=== PATIENT | male | born 1940 | race Caucasian/White ===

== ENCOUNTER → 2017-06-20 | Outpatient (CLI) | payer MEDICARE, OTHER ==
--- NOTE | 2017-06-21 07:18 | XR ---
EXAMINATION TYPE: XR lumbosacral spine min 4V , 5 VIEWS DATE OF EXAM ORDERED: 06/20/2017 HISTORY: [id number] SI pain, lumbar strain. COMPARISON: None. FINDINGS: There is a superior endplate infraction at L1. The age of this is not determined. Vertebra l body height and alignment otherwise maintained. There is no spondylolysis or spondylolisthesis. The re is disc space loss and a vacuum phenomena present at L4-5. There is also disc space loss at L5-S1. There is minor hypertrophic spondylosis present at L1-2. There is mild, diffuse facet arthropathy, w orse on the right than the left. The pedicles are intact. IMPRESSION: 1. SUPERIOR ENDPLATE INFRACTION OF L1, AGE NOT DETERMINED. 2. MILD, DIFFUSE DEGENERATIVE CHANGE.
== END | disposition home or self-care (01) ==
LOC: RADXRYALE 16:22
PROVIDERS: ATTEND Physician Assistant Medical
DX: M47.816 Spondylosis without myelopathy or radiculopathy, lumbar region (principal); M89.8X8 Other specified disorders of bone, other site
CPT/HCPCS: 72110

== ENCOUNTER → 2018-03-21 | Outpatient (CLI) | payer MEDICARE, OTHER ==
--- NOTE | 2018-03-21 13:03 | XR ---
EXAMINATION TYPE: XR chest 2V DATE OF EXAM: 03/21/2018 COMPARISON: 06/20/2016 TECHNIQUE: PA and lateral views submitted. HISTORY: Cough FINDINGS: The lungs are clear and there is no pneumothorax, pleural effusion, or focal pneumonia. Hyperinflat ion suggests COPD. Hypertrophic and degenerative change of the spine. No overt failure. IMPRESSION: 1. No acute process.
== END | disposition home or self-care (01) ==
LOC: RADXRYALE 11:53
PROVIDERS: ATTEND Physician Assistant Medical
DX: R05 Cough (principal); R06.02 Shortness of breath
CPT/HCPCS: 71046

== ENCOUNTER → 2018-06-01 | Outpatient (CLI) | payer MEDICARE, OTHER ==
--- NOTE | 2018-06-01 16:02 | XR ---
Left knee HISTORY: Left knee pain 3 views of the left knee Bone mineralization and alignment are maintained. No evident joint effusion. No fracture or dislocati on evident. There are vascular calcifications present. IMPRESSION: No significant abnormality, consider knee MRI.
== END | disposition home or self-care (01) ==
LOC: RADXRYALE 15:26
PROVIDERS: ATTEND Family Medicine
DX: M25.562 Pain in left knee (principal)

== ENCOUNTER → 2018-06-13 | Outpatient (CLI) | payer MEDICARE, OTHER | END | disposition home or self-care (01) | LOC: LABWHC1 14:57 | PROVIDERS: ATTEND Otolaryngology | DX: J30.89 Other allergic rhinitis (principal) | CPT/HCPCS: 36415 ==

== ENCOUNTER 2018-09-11 09:29 | Day surgery (SDC) | payer MEDICARE, OTHER ==
[2018-09-10 11:35] VITALS: BMI 34.4
[~2018-09-11 09:29] MED LIST: HEPARIN SODIUM,PORCINE 5,000 UNIT/ML 1 ML VIAL SQ ONE; HYDROmorphone 1 MG/ML 1 ML SYRINGE IVP PRN; LACTATED RINGERS 1,000 ML IV SCH; ONDANSETRON 4 MG/2 ML VIAL IVP ONE; ceFAZolin IN SWFI 2 GM/20 ML SYRINGE IVP ONE
[2018-09-11] MEDS ORDERED: MIDAZOLAM 2 MG/2 ML VIAL IV ONE (10:32)
[2018-09-11 10:35] LABS: Glucose,Whole Blood 123 mg/dL (75-99)
--- NOTE | 2018-09-11 10:53 | P.GSHP ---
History of Present Illness H&P Date: 09/11/18 Chief Complaint: Right inguinal hernia This a 78-year-old male who presents today for laparoscopic robotic repair of right inguinal hernia. Past Medical History Past Medical History: Cancer, COPD, Diabetes Mellitus, Hypertension, Thyroid Disorder Additional Past Medical History / Comment(s): BENIGN TREMORS, RASH ON ANKLES AND "JOCK ITCH", STATES PROBLEMS WITH HIS BALANCE AND USES A CANE., HX OF PROSTATE CANCER WITH "SEED IMPLANTS ., FREQUENT URINATION., RIGHT INGUINAL HERNIA. History of Any Multi-Drug Resistant Organisms: None Reported Past Surgical History: Orthopedic Surgery Additional Past Surgical History / Comment(s): LEFT ROTATOR CUFF ., PROSTATE SEED IMPLANTS. Past Anesthesia/Blood Transfusion Reactions: Postoperative Nausea & Vomiting ( PONV) Past Psychological History: No Psychological Hx Reported Smoking Status: Former smoker Past Alcohol Use History: None Reported Additional Past Alcohol Use History / Comment(s): QUIT SMOKING 20 YEARS AGO OR MORE. SMOKED 1 PPD, SMOKED APPROX . 20 YEARS. Past Drug Use History: None Reported - Past Family History Mother Family Medical History: Cancer Medications and Allergies Home Medications Medication Instructions Recorded Confirmed Type Albuterol Sulfate [Accuneb] 1 dose INHALATION DAILY 09/10/18 09/10/18 History Albuterol Sulfate [Proair 2 puff PO Q4-6H PRN 09/10/18 09/10/18 History Respiclick] Alendronate Sodium [Fosamax] 70 mg PO WEEKLY 09/10/18 09/10/18 History Calcium Carbonate/Vitamin D3 1 each PO BID 09/10/18 09/10/18 History [Calcium 500-Vit D3 200 Tablet] Cholecalciferol (Vitamin D3) 2,000 unit PO DAILY 09/10/18 09/10/18 History [Vitamin D3] Clopidogrel [Plavix] 75 mg PO DAILY 09/10/18 09/10/18 History Fluticasone Nasal Drifting [Flonase 2 spr EA NOSTRIL DAILY 09/10/18 09/10/18 History Nasal Drifting] Hydrochlorothiazide 25 mg PO DAILY 09/10/18 09/10/18 History Levothyroxine Sodium 100 mcg PO DAILY 09/10/18 09/10/18 History Metoprolol Tartrate [Lopressor] 50 mg PO BID 09/10/18 09/10/18 History Mirabegron [Myrbetriq] 50 mg PO DAILY 09/10/18 09/10/18 History Nystatin 100,000Unit/gm Cream 1 applic TOPICAL BID PRN 09/10/18 09/10/18 History [Mycostatin Cream] [place]-3 Fatty Acids/Fish Oil [Fish 1 each PO DAILY 09/10/18 09/10/18 History Oil 1,000 mg Softgel] Pregabalin [Lyrica] 50 mg PO HS 09/10/18 09/10/18 History Pregabalin [Lyrica] 100 mg PO DAILY 09/10/18 09/10/18 History Primidone [Mysoline] 25 mg PO DAILY 09/10/18 09/10/18 History Telmisartan [Micardis] 80 mg PO DAILY 09/10/18 09/10/18 History Tiotropium [place] [Spiriva] 1 cap INHALATION DAILY 09/10/18 09/10/18 History Triamcinolone 0.1% Ointment 1 applic TOPICAL BID 09/10/18 09/10/18 History [Kenalog 0.1% Ointment] Wheat Dextrin [Benefiber] 1 each PO HS 09/10/18 09/10/18 History amLODIPine BESYLATE [Norvasc] 5 mg PO DAILY 09/10/18 09/10/18 History metFORMIN HCL [Glucophage] 850 mg PO DAILY 09/10/18 09/10/18 History traZODone HCL 50 mg PO HS 09/10/18 09/10/18 History Allergies Allergy/AdvReac Type Severity Reaction Status Date / Time No Known Allergies Allergy Unverified 09/11/18 10:09 Surgical - Exam Vital Signs Temp Pulse Resp BP Pulse Ox 98.6 F 79 16 162/83 98 09/11/18 10:14 09/11/18 10:14 09/11/18 10:14 09/11/18 10:14 09/11/18 10:14 - General well developed, no distress - Eyes PERRL - ENT normal pinna - Neck no masses - Respiratory normal expansion - Cardiovascular Rhythm: regular - Abdomen Abdomen: soft, non tender Hernia: inguinal (Reducible right inguinal hernia) Results - Labs Abnormal Lab Results - Last 24 Hours (Table) 09/11/18 Range/Units 10:19 POC Glucose (mg/dL) 123 H (75-99) mg/dL Assessment and Plan Assessment: Right inguinal hernia. We'll perform laparoscopic robotic assistance repair.
[2018-09-11] MEDS ORDERED: LIDOCAINE 1% 20 ML VIAL (10MG/ML) FOR IV START INTRADERMA ONE (10:58)
--- NOTE | 2018-09-11 11:08 | P.ONQ ---
Anesthesiology Proc Note - PNB - Peripheral Nerve Block Performed Right Transversus Abdominis Single Time Out Performed: Yes Procedure Start Time: 10:32 Procedure Stop Time: 10:40 Indication: Acute Post-Operative Pain Sedation Type: Sedate with meaningful contact maintained Preparation: Sterile Prep Position: Supine Needle Size: 50mm (2") Needle Gauge: 21 Technique: Ultrasound Injectate: 0.5% Ropivacaine (see comment for volume) (ropi .5% 15cc) Blood Aspirated: No Pain Paresthesia on Injection Noted: No Resistance on Injection: Normal Events: Uneventful and Well Tolerated
[2018-09-11] MEDS ORDERED: ROCURONIUM BROMIDE 10 MG/ML 10 ML VIAL IV ONE (11:28)
[2018-09-11] MEDS ORDERED: LIDOCAINE 1% INJ 10MG/ML (20 ML MDV) ONE (11:28)
[2018-09-11] MEDS ORDERED: fentaNYL (PF) 50 MCG/ML 2 ML AMP ONE (11:28)
[2018-09-11] MEDS ORDERED: GLYCOPYRROLATE 0.2 MG/ML 2 ML VIAL ONE (11:28)
[2018-09-11] MEDS ORDERED: HYDROmorphone (PF) 1 MG/ML ONE (11:28)
[2018-09-11] MEDS ORDERED: PROPOFOL 10 MG/ML 20 ML VIAL IV ONE (11:28)
[2018-09-11] MEDS ORDERED: KETOROLAC 30 MG/ML 1 ML VIAL ONE (11:28)
[2018-09-11] MEDS ORDERED: SUCCINYLCHOLINE CHLORIDE 100 MG/5 ML SYR IV ONE (11:28)
[2018-09-11] MEDS ORDERED: ePHEDrine SULFATE/0.9% NACL/PF 50 MG/5 ML SYRINGE IV ONE (11:28)
[2018-09-11] MEDS ORDERED: NEOSTIGMINE 1 MG/ML 10 ML VIAL ONE (11:28)
[2018-09-11] MEDS ORDERED: ROPIVACAINE 5 MG/ML 30 ML VIAL ONE (11:28)
[2018-09-11] MEDS ORDERED: BUPIVACAIN-EPI 0.25%-1:200,000 30 ML VIAL SQ ONE (11:52)
[2018-09-11 12:54] VITALS: TEMP 97.2
[2018-09-11 13:01] VITALS: RESP 16
[2018-09-11 13:01] LABS: Glucose,Whole Blood 164 mg/dL (75-99)
[2018-09-11] MEDS: fentaNYL (PF) 50 MCG/ML 2 ML AMP IV PRN ×2 (13:16→13:21)
[2018-09-11] MEDS ORDERED: RACEPINEPHRINE 2.25% NEB 0.5 ML NEBU INHALATION STA (14:37)
[2018-09-11] MEDS ORDERED: SODIUM CHLORIDE 0.9% NEBULIZ 3 ML INHALATION STA (14:44)
[2018-09-11] MEDS ORDERED: ALBUTEROL NEBULIZED 2.5 MG/3 ML INHALATION STA (14:52)
[2018-09-11 15:00] VITALS: BP 136/75; PULSE 86
--- NOTE | 2018-09-28 09:57 | P.OP ---
Date of Procedure: 10/12/18 Preoperative Diagnosis: Right inguinal hernia Postoperative Diagnosis: Right inguinal hernia Procedure(s) Performed: Scopic robotic-assisted repair of right inguinal hernia Anesthesia: CARLOSA Surgeon: Manuel Hernandez Estimated Blood Loss (ml): 5 Pathology: none sent Condition: stable Disposition: PACU Description of Procedure: The patient was placed on the operating table in the supine position. The patient received general anesthesia. The patient's abdomen was prepped and draped in usual sterile fashion. The skin was anesthetized 1% local Xylocaine at the incision sites. Using an 11 blade a skin incision was made at the umbilicus. The fascia was grasped with a Paul and then the peritoneal cavity was entered with the Veress needle. Position of the Veress needle was confirmed with a positive drop test. After adequate insufflation a 5 mm trocar was placed into the peritoneal cavity. The Laparoscope was placed the peritoneal cavity. And a robotic 8 mm trocar was placed in the right lateral position and then another 8 mm robotic trochars placed in the left lateral position. The original 5 mm trocar was exchanged for a 12 mm trocar. The patient was placed in reverse Trendelenburg and then the patient was docked to the robot. Next the peritoneum over top of the hernia was incised and then using blunt and sharp dissection and electrocautery the hernia sac was dissected free from the floor of the inguinal canal. The hernia sac was completely reduced into the peritoneal cavity. And then using the [facility] specialist mesh the hernia was repaired. The peritoneum was then sutured with 2-0V lock suture. The patient was then undocked the robot. The needle was withdrawn from the peritoneal cavity. The umbilical trocar site was closed with 0 Ethibond suture. The skin was closed interrupted 3-0 Monocryl suture. Dermabond dressing was applied. Patient was sent to recovery in stable condition.
== END 2018-09-11 15:36 | disposition home or self-care (01) ==
LOC: OR 09:29
PROVIDERS: ATTEND Surgery
DX: K40.90 Unilateral inguinal hernia, without obstruction or gangrene, not specified as recurrent (principal); J44.9 Chronic obstructive pulmonary disease, unspecified; E11.9 Type 2 diabetes mellitus without complications; I10 Essential (primary) hypertension; E07.9 Disorder of thyroid, unspecified; R25.1 Tremor, unspecified; R21 Rash and other nonspecific skin eruption; R35.0 Frequency of micturition; Z79.84 Long term (current) use of oral hypoglycemic drugs; Z79.02 Long term (current) use of antithrombotics/antiplatelets; Z79.890 Hormone replacement therapy; Z79.51 Long term (current) use of inhaled steroids; Z79.899 Other long term (current) drug therapy; Z85.46 Personal history of malignant neoplasm of prostate; Z92.3 Personal history of irradiation; Z87.891 Personal history of nicotine dependence
CPT/HCPCS: 94640; 64486; 49650; C1781; J2250; J1644; J2710; J2405; J2001; J3010; J1885; J1170; J2795; J0330; J2704; J0690

== ENCOUNTER → 2018-10-05 | Outpatient (CLI) | payer MEDICARE, OTHER ==
--- NOTE | 2018-10-05 13:49 | XR ---
EXAMINATION TYPE: XR abdomen 2V DATE OF EXAM: 10/05/2018 COMPARISON: 01/11/2016 INDICATION: Lower abdominal pain TECHNIQUE: Single view abdomen FINDINGS: There is a normal bowel gas pattern. Mild fecal retention is within the colon. Psoas margins are normal. No organomegaly is present. Multiple brachii therapy seeds are within the prostate region. IMPRESSION: 1. Unremarkable Abdomen
== END | disposition home or self-care (01) ==
LOC: RADXRYALE 13:22
PROVIDERS: ATTEND Physician Assistant Medical
DX: R10.30 Lower abdominal pain, unspecified (principal)
CPT/HCPCS: 74019

== ENCOUNTER → 2018-12-07 | Outpatient (CLI) | payer MEDICARE, OTHER ==
--- NOTE | 2018-12-07 14:54 | MR ---
EXAMINATION TYPE: MR lumbar spine wo con DATE OF EXAM: 12/07/2018 COMPARISON: 06/20/2017 lumbar spine radiographs HISTORY: Lumbago with sciatica, left side TECHNIQUE: Multiplanar, multisequence images of the lumbar spine were acquired. FINDINGS: The lumbar spine vertebral bodies maintain normal alignment. There is a chronic compression deformity of the L1 vertebral body with height loss of approximately 50%. There are T1/T2 hypointens e well-circumscribed oval and round lesions of the L1-L3 vertebral bodies measuring up to 1.2 cm at L 1, 1.2 cm at L2, and 8 mm at L3. Multilevel disc desiccation is seen. L1-L2: There is a broad-based disc bulge and minimal facet arthropathy resulting in mild bilateral ne ural foraminal narrowing without spinal canal stenosis. L2-L3: There is a broad-based disc bulge, right eccentric resulting in mild to moderate right and mil d left neural foraminal narrowing. No spinal canal stenosis. Ligamentum flavum buckling and facet art hropathy are also noted. L3-L4: There is prominent ligamentum flavum buckling and facet arthropathy as well as a broad-based d isc bulge resulting in severe spinal canal stenosis and mild bilateral neural foraminal narrowing. L4-L5: There is a left paracentral disc herniation superimposed upon a broad-based disc bulge in comb ination with facet arthropathy and mild ligamentum flavum buckling create mild to moderate bilateral neural foraminal narrowing and moderate spinal canal stenosis. L5-S1: There is a broad-based disc bulge and facet arthropathy with ligamentum flavum buckling contri buting to mild bilateral neural foraminal narrowing without spinal canal stenosis. IMPRESSION: 1. Left paracentral disc herniation at L4-L5 contributing to moderate spinal canal stenosis and mild bilateral neural foraminal narrowing examination with degenerative disc disease 2. Patchy bone marrow signal with discrete lesions at the L1-L3 vertebral levels that are mildly susp icious for possible metastatic lesions. These do not display the typical markedly hypointense T1 sign al however there is some T1 hypointensity and T2 hypointensity. Further evaluation with bone scan or contrast-enhanced MRI of the lumbar spine is recommended in addition to serum PSA level. 3. Severe spinal canal stenosis at L3-L4 secondary to prominent ligamentum flavum buckling and facet arthropathy, and extensive degenerative disc disease. 4. Old compression deformity of the L1 vertebral body without retropulsion. 5. Multilevel degenerative changes of the lumbar spine is overall moderate degree and further describ ed in detail above.
== END | disposition home or self-care (01) ==
LOC: RADMRIMAIN 12:16
PROVIDERS: ATTEND Family Medicine
DX: M48.061 Spinal stenosis, lumbar region without neurogenic claudication (principal); M51.26 Other intervertebral disc displacement, lumbar region; M51.36 Other intervertebral disc degeneration, lumbar region; M47.816 Spondylosis without myelopathy or radiculopathy, lumbar region; M46.96 Unspecified inflammatory spondylopathy, lumbar region
CPT/HCPCS: 72148

== ENCOUNTER → 2018-12-21 | Outpatient (CLI) | payer MEDICARE, OTHER ==
--- NOTE | 2018-12-21 21:58 | MR ---
EXAMINATION TYPE: MR lumbar spine w con DATE OF EXAM: 12/21/2018 COMPARISON: MR spine wo contrast 12/07/2017 HISTORY: Back, lt hip pain; Call back for contrast only, abn MRI 12-07-18 TECHNIQUE: Multiplanar, multisequence images of the lumbar spine were acquired utilizing 11 mL intravenous Gadav ist gadolinium contrast. The lesions previously described at L1-L3 are again noted. At the superior endplate of L2 there is po ssible mild enhancement. Within the L1 vertebral body there is some possible mild enhancement. Additi onal lesions show no enhancement. There is some mild enhancement along the superior endplate of L1 an d at the disc space at T12-L1 at the level of a probable Schmorl's node. There is enhancement along t he disc space at L5-S1. Lack of enhancement of the cystic foci within the upper pole the right kidney suggests cortical cysts. IMPRESSION: Mild marrow enhancement is indeterminate and of questionable clinical significance. Subtle enhancemen t at lesion at the endplate of the superior aspect at L2, possibly within the L1 vertebral body. Bone scan may be of benefit, consider follow-up to assess for interval change versus stability.
== END | disposition home or self-care (01) ==
LOC: RADMRIMAIN 17:29
PROVIDERS: ATTEND Family Medicine
DX: M48.8X6 Other specified spondylopathies, lumbar region (principal); R93.7 Abnormal findings on diagnostic imaging of other parts of musculoskeletal system; Z85.46 Personal history of malignant neoplasm of prostate; E11.9 Type 2 diabetes mellitus without complications
CPT/HCPCS: 82565; 72149; 36415; A9585

== ENCOUNTER → 2019-01-23 | Outpatient (CLI) | payer MEDICARE, OTHER ==
--- NOTE | 2019-01-23 11:29 | XR ---
EXAMINATION TYPE: XR abdomen 2V DATE OF EXAM: 01/23/2019 COMPARISON: 10/05/2018 HISTORY: Pain TECHNIQUE: One view abdominal series FINDINGS: The osseous structures are intact. The bowel gas pattern is nonspecific. Hypertrophic and degenerati ve change of the spine. Evidence of previous prostate seeding noted. Arthropathy of the hips and dege nerative change of the spine. Calcification pelvis likely vascular. IMPRESSION: 1. Nonspecific abdomen.
== END ==
LOC: RADXRYALE 11:03
PROVIDERS: ATTEND Physician Assistant Medical
DX: R10.811 Right upper quadrant abdominal tenderness (principal); R19.7 Diarrhea, unspecified
CPT/HCPCS: 74019

== ENCOUNTER → 2019-04-29 | Outpatient (CLI) | payer MEDICARE, OTHER ==
--- NOTE | 2019-04-30 07:00 | XR ---
EXAMINATION TYPE: XR chest 2V DATE OF EXAM: 04/29/2019 COMPARISON: Prior chest x-ray 03/21/[address] chest 12/28/2009 HISTORY: Shortness of breath TECHNIQUE: Frontal and lateral views of the chest are obtained. FINDINGS: Patchy basilar density is present bilaterally. No pneumothorax or pleural effusion evident . Cardiomediastinal silhouette, pulmonary vascularity and anuj are stable. Relative lucency in the le ft upper lobe indicative of emphysematous change. There are prominent lung volumes with flattening th e hemidiaphragms. IMPRESSION: Possible basilar atelectasis or scarring. There is emphysema.
== END | disposition home or self-care (01) ==
LOC: RADXRYALE 16:45
PROVIDERS: ATTEND Physician Assistant Medical
DX: J43.9 Emphysema, unspecified (principal)
CPT/HCPCS: 71046

== ENCOUNTER → 2019-05-09 | Outpatient (CLI) | payer MEDICARE, OTHER ==
--- NOTE | 2019-05-09 09:30 | US ---
EXAMINATION TYPE: US abdomen complete DATE OF EXAM: 05/09/2019 COMPARISON: US aorta CLINICAL HISTORY: R10.9 abdominal pain. Generalized ABD pain EXAM MEASUREMENTS: Liver Length: 13.5 cm Gallbladder Wall: 0.2 cm CBD: 0.4 cm Spleen: 11.5 cm Right Kidney: 11.2 x 6.8 x 5.6 cm Left Kidney: 12.1 x 4.7 x 5.2 cm Pancreas: obscured by overlying bowel gas Liver: Heterogeneous Gallbladder: Possible gallstones within neck, possible 7mm polyp Evidence for sonographic Griffith's sign: No CBD: wnl Spleen: wnl Right Kidney: Cortical thinning, hypoechoic lesion upper pole= 1.8 x 1.5 x 1.9 cm Left Kidney: Cortical thinning Upper IVC: wnl Abd Aorta: wnl IMPRESSION: 1. Heterogeneous pattern of liver is nonspecific and be seen with discitis pneumatosis, hepatocellula r disease, or hepatitis. 2. Findings suggest gallbladder polyp or nonshadowing stone. 3. Bilateral renal cortical thinning correlate for chronic renal disease. There is a hypoechoic nodul e involving the right kidney do not meet the criteria of a simple cyst but this may be technical. Cor relate with CT scan as clinically warranted.
== END | disposition home or self-care (01) ==
LOC: RADUSWWP 08:30
PROVIDERS: ATTEND Internal Medicine
DX: N28.89 Other specified disorders of kidney and ureter (principal); R93.2 Abnormal findings on diagnostic imaging of liver and biliary tract
CPT/HCPCS: 76700

== ENCOUNTER 2019-05-23 07:39 | Day surgery (SDC) | payer MEDICARE, OTHER ==
[2019-05-21 11:41] VITALS: BMI 25.1
[~2019-05-23 07:39] MED LIST changes: -HEPARIN SODIUM,PORCINE 5,000 UNIT/ML 1 ML VIAL SQ ONE; -HYDROmorphone 1 MG/ML 1 ML SYRINGE IVP PRN; -LACTATED RINGERS 1,000 ML IV SCH; +LIDOCAINE 1% 20 ML VIAL (10MG/ML) FOR IV START INTRADERMA PRN; -ONDANSETRON 4 MG/2 ML VIAL IVP ONE; -ceFAZolin IN SWFI 2 GM/20 ML SYRINGE IVP ONE
[2019-05-23] MEDS: LACTATED RINGERS 1,000 ML IV SCH ×2 (08:09→08:31)
[2019-05-23 08:13] LABS: Glucose,Whole Blood 105 mg/dL (75-99)
[2019-05-23 08:19] VITALS: TEMP 97.3
[2019-05-23] MEDS: ALBUTEROL NEBULIZED 2.5 MG/3 ML INHALATION STA ×2 (08:20→08:22)
[2019-05-23] MEDS ORDERED: PROPOFOL 10 MG/ML 20 ML VIAL IV ONE (08:31)
[2019-05-23] MEDS ORDERED: MIDAZOLAM 2 MG/2 ML VIAL ONE (08:31)
[2019-05-23] MEDS ORDERED: fentaNYL (PF) 50 MCG/ML 2 ML AMP ONE (08:31)
[2019-05-23 09:00] VITALS: RESP 18
--- NOTE | 2019-05-23 09:02 | P.PCN ---
Date of Procedure: 05/23/19 Description of Procedure: BRIEF HISTORY: 79-year-old male with a medical history significant for COPD, hypertension, diabetes mellitus type 2, chronic constipation who presents with abdominal pain in the outpatient setting. Today he is here for evaluation with EGD. The patient reported 3 months of aching abdominal pain occurring 3 times per day lasting approximately 1 hour or more. He felt that feeding would worsen the pain in that it would subside on its own. He has no prior history of cholecystectomy and underwent evaluation with x-ray of the abdomen on 01/15 which was essentially normal. No relief with omeprazole daily. He denied any nausea or vomiting, GERD, dysphagia or odynophagia. He reports decreased oral intake secondary to the pain. Colonoscopy in 04/2016 was significant for diverticulosis, internal hemorrhoids and rectal polyps with pathology showing hyperplastic polyps. He also reports constipation and was started on MiraLAX therapy. Plan was for the patient to undergo ultrasound evaluation as well as EGD and extensive lab evaluation. PROCEDURE PERFORMED: Esophagogastroduodenoscopy with biopsy. PREOPERATIVE DIAGNOSIS: Epigastric abdominal pain. ESTIMATED BLOOD LOSS: Minimal. IV sedation per anesthesia. PROCEDURE: After informed consent was obtained, the patient was brought into the endoscopy unit. IV sedation was administered by Anesthesia under continuous monitoring. Initially the Olympus GIF-190 video endoscope was inserted into the mouth. Esophagus intubated without any difficulty. It was gradually advanced into the stomach and duodenum and carefully examined. The bulb and the second part of the duodenum appeared normal, biopsies were taken. The ampulla appeared somewhat prominent and was biopsied to rule out adenoma or other pathology. The scope at this time was withdrawn to the stomach, adequately insufflated with air, and upon careful examination, mucosa of the antrum, body, cardia and the fundus appeared grossly normal. 2 diminutive gastric polyps were noted and removed with cold forcep polypectomy. One mucosal abnormality suggestive of a lipoma in the antrum of the stomach was noted. Mild scattered erythema in the antrum and body suggestive of mild gastritis was seen and biopsied. A small hiatal hernia was seen. The scope was then withdrawn into the esophagus. The GE junction was located at 40 cm from the incisors and biopsied as see Z line appeared somewhat irregular. The esophagus appeared normal but somewhat tortuous. There were no erosions or ulcerations seen and the patient tolerated the procedure well. IMPRESSION: 1. Mild gastritis antrum and body, biopsied. 2. Diminutive gastric polyps removed with cold forceps. 3. Duodenal biopsies. 4. Prominent ampulla biopsied. 5. GE junction biopsies or irregular Z line. 6. Small antral mucosal abnormality suggestive of lipoma. 7. Small hiatal hernia. RECOMMENDATIONS: The findings of this examination were discussed with the patient and his son. Okay to resume diet. Okay to resume Plavix tomorrow. Await pathology from biopsies. Patient is scheduled to follow up in the gastroenterology clinic. Further recommendations pending findings of pathology.
[2019-05-23 09:24] VITALS: BP 139/67; PULSE 59
== END 2019-05-23 09:31 | disposition home or self-care (01) ==
LOC: ORWHC2ENDO 07:39
PROVIDERS: ATTEND Internal Medicine
DX: K29.80 Duodenitis without bleeding (principal); K44.9 Diaphragmatic hernia without obstruction or gangrene; K31.819 Angiodysplasia of stomach and duodenum without bleeding; K29.50 Unspecified chronic gastritis without bleeding; K31.7 Polyp of stomach and duodenum; I10 Essential (primary) hypertension; K20.9 Esophagitis, unspecified; Z87.891 Personal history of nicotine dependence; E11.9 Type 2 diabetes mellitus without complications; J44.9 Chronic obstructive pulmonary disease, unspecified; Z80.3 Family history of malignant neoplasm of breast; Z85.46 Personal history of malignant neoplasm of prostate; Z97.2 Presence of dental prosthetic device (complete) (partial); Z79.84 Long term (current) use of oral hypoglycemic drugs; Z79.02 Long term (current) use of antithrombotics/antiplatelets; Z79.890 Hormone replacement therapy; Z79.899 Other long term (current) drug therapy
CPT/HCPCS: 94640; 88305; 43239; J2250; J3010; J2704

== ENCOUNTER → 2020-01-20 | Outpatient (CLI) | payer MEDICARE, OTHER ==
--- NOTE | 2020-01-21 10:32 | XR ---
EXAMINATION TYPE: XR cervical spine comp DATE OF EXAM: 01/20/2020 TECHNIQUE: Frontal, lateral, oblique, swimmers, and open mouth view of the cervical spine are obtaine d. HISTORY: [id number] CERVICALGIA COMPARISON: None FINDINGS there is near complete osseous fusion of C3 and C4. There is very minimal retrolisthesis of C5 on C6 and C6 on C7. Multilevel uncovertebral hypertrophy, anterior osteophytes, and facet arthropa thy are seen. No abnormal prevertebral soft tissue swelling. Oblique images demonstrate minimal neura l foraminal narrowing on the right at C4-C5 and C5-C6 and on the left at C5-C6. Odontoid is not well visualized. Dextroscoliotic curvature of the cervical spine may be positional in nature. IMPRESSION: 1. No acute fracture is seen in the cervical spine. 2. Moderate multilevel degenerative disc disease of the cervical spine. Multilevel malalignment is li lennie on a degenerative basis. 3. The patient's head is positioned towards the left with a dextroscoliotic curvature of the cervical spine that could be positional in nature. 4. Suboptimal evaluation of the odontoid.
== END | disposition home or self-care (01) ==
LOC: RADXRYALE 16:33
PROVIDERS: ATTEND Physician Assistant Medical
DX: M50.30 Other cervical disc degeneration, unspecified cervical region (principal)
CPT/HCPCS: 72050

== ENCOUNTER 2020-02-25 08:23 | Emergency (ER) | payer MEDICARE, OTHER ==
[2020-02-25 08:31] VITALS: RESP 18
--- NOTE | 2020-02-25 09:00 | ED ---
Fall HPI - General Source: patient, EMS, RN notes reviewed, old records reviewed Mode of arrival: EMS <Leann Huynh - Last Filed: 02/25/20 10:10> <SawJelani - Last Filed: 02/25/20 10:34> - General Chief Complaint: Fall Stated Complaint: fall Time Seen by Provider: 02/25/20 08:24 - History of Present Illness Initial Comments: Patient is a pleasant 79-year-old male who presents emergency Department today with chief complaint of right knee and right hip pain after fall last night. Patient reports that he typically ambulates with a walker. He believes that he tripped falling again. He does live with his son who takes care of him. He is not on the ground for long. Also complains right lower extremity calf pain and swelling for the past few days. Patient states that he's had no history of blood clots. He is very hard of hearing. denies any head injury from the fall. He denies chest pain and shortness of breath. (Leann Huynh) - Related Data Home Medications Medication Instructions Recorded Confirmed Albuterol Sulfate [Accuneb] 1 dose INHALATION QAM 09/10/18 05/23/19 Albuterol Sulfate [Proair 2 puff PO Q4-6H PRN 09/10/18 05/23/19 Respiclick] Alendronate Sodium [Fosamax] 70 mg PO WEEKLY 09/10/18 05/23/19 Calcium Carbonate/Vitamin D3 1 each PO BID 09/10/18 05/23/19 [Calcium 500-Vit D3 200 Tablet] Cholecalciferol (Vitamin D3) 2,000 unit PO DAILY 09/10/18 05/23/19 [Vitamin D3] Clopidogrel [Plavix] 75 mg PO DAILY 09/10/18 05/23/19 Fluticasone Nasal [place] [Flonase 2 spr EA NOSTRIL DAILY 09/10/18 05/23/19 Nasal [place]] Hydrochlorothiazide 25 mg PO DAILY 09/10/18 05/23/19 Levothyroxine Sodium 100 mcg PO DAILY 09/10/18 05/23/19 Metoprolol Tartrate [Lopressor] 50 mg PO BID 09/10/18 05/23/19 Nystatin 100,000Unit/gm Cream 1 applic TOPICAL BID PRN 09/10/18 05/23/19 [Mycostatin Cream] Sikes-3 Fatty Acids/Fish Oil [Fish 1 each PO DAILY 09/10/18 05/23/19 Oil 1,000 mg Softgel] Pregabalin [Lyrica] 50 mg PO QAM 09/10/18 05/23/19 Primidone [Mysoline] 25 mg PO BID 09/10/18 05/23/19 Telmisartan [Micardis] 80 mg PO QAM 09/10/18 05/23/19 Tiotropium [place] [Spiriva] 1 cap INHALATION QAM 09/10/18 05/23/19 Triamcinolone 0.1% Ointment 1 applic TOPICAL BID 09/10/18 05/23/19 [Kenalog 0.1% Ointment] Wheat Dextrin [Benefiber] 1 each PO HS 09/10/18 05/23/19 amLODIPine BESYLATE [Norvasc] 5 mg PO QAM 09/10/18 05/23/19 traZODone HCL 50 mg PO HS 09/10/18 05/23/19 Docusate [Colace] 100 mg PO BID 05/21/19 05/23/19 Hydrocortisone Oint 1 applic TOPICAL BID 05/21/19 05/23/19 [Hydrocortisone 2.5% Oint] sitaGLIPtin [Januvia] 100 mg PO DAILY 05/21/19 05/23/19 Previous Rx's Medication Instructions Recorded Naproxen 500 mg PO BID #12 tablet 02/25/20 Allergies Allergy/AdvReac Type Severity Reaction Status Date / Time No Known Allergies Allergy Verified 02/25/20 08:32 Review of Systems ROS Other: All systems not noted in ROS Statement are negative. <Laenn Huynh - Last Filed: 02/25/20 10:10> ROS Other: All systems not noted in ROS Statement are negative. <Jelani Spring - Last Filed: 02/25/20 10:34> ROS Statement: Those systems with pertinent positive or pertinent negative responses have been documented in the HPI. Past Medical History Past Medical History: Cancer, COPD, Diabetes Mellitus, Hypertension, Thyroid Disorder Additional Past Medical History / Comment(s): states "having stomach discomfort with eating,"BENIGN TREMORS, RASH ON ANKLES AND "JOCK ITCH", STATES PROBLEMS WITH HIS BALANCE AND USES A CANE., HX OF PROSTATE CANCER WITH "SEED IMPLANTS ., FREQUENT URINATION., RIGHT INGUINAL HERNIA. History of Any Multi-Drug Resistant Organisms: None Reported Past Surgical History: Orthopedic Surgery Additional Past Surgical History / Comment(s): LEFT ROTATOR CUFF ., PROSTATE SEED IMPLANTS. Past Anesthesia/Blood Transfusion Reactions: Postoperative Nausea & Vomiting (PONV) Past Psychological History: No Psychological Hx Reported Smoking Status: Former smoker Past Alcohol Use History: None Reported Past Drug Use History: None Reported - Past Family History Mother Family Medical History: Cancer <Leann Huynh - Last Filed: 02/25/20 10:10> General Exam Limitations: no limitations General appearance: alert, in no apparent distress Head exam: Present: atraumatic, normocephalic, normal inspection Eye exam: Present: normal appearance, PERRL, EOMI. Absent: scleral icterus, conjunctival injection, periorbital swelling ENT exam: Present: normal exam, mucous membranes moist Neck exam: Present: normal inspection. Absent: tenderness, meningismus, lymphadenopathy Respiratory exam: Present: normal lung sounds bilaterally. Absent: respiratory distress, wheezes, rales, rhonchi, stridor Cardiovascular Exam: Present: regular rate, normal rhythm, normal heart sounds. Absent: systolic murmur, diastolic murmur, rubs, gallop, clicks GI/Abdominal exam: Present: soft, normal bowel sounds. Absent: distended, guarding, rebound, rigid Extremities exam: Present: normal inspection, full ROM, normal capillary refill. Absent: tenderness, pedal edema, joint swelling, calf tenderness Right Hip exam: Present: tenderness Upper Leg exam: Present: normal inspection, full ROM Knee exam: Present: normal inspection, full ROM Lower Leg exam: Present: normal inspection, full ROM Ankle exam: Present: normal inspection, full ROM, erythema (lesion over R ankle) Foot/Toe exam: Present: normal inspection, full ROM, swelling Neurovascular tendon exam: Present: no vascular compromise Gait: observed and limited by pain Back exam: Present: normal inspection Neurological exam: Present: alert, oriented X3, CN II-XII intact Psychiatric exam: Present: normal affect, normal mood Skin exam: Present: warm, dry, intact, normal color. Absent: rash <Leann Huynh - Last Filed: 02/25/20 10:10> - General Exam Comments Initial Comments: 79-year-old male. Hard of hearing. (Leann Huynh) Course <Jelani Spring - Last Filed: 02/25/20 10:34> Vital Signs 02/25/20 08:25 Temperature 97.9 F Pulse Rate 66 Respiratory 18 Rate Blood Pressure 135/81 O2 Sat by Pulse 97 Oximetry - Reevaluation(s) Reevaluation #1: 02/25/20 10:34 PA supervision: I proceeded [id number] evaluation the patient he did present with complaints of pain to his right lower extremity and hip after a fall last night. Imaging demonstrates no evidence of fractures or subluxation. Evidence of possible effusion to the knee he will be discharged with follow-up with orthopedics I do agree with the assessment and plan. (Jelani Spring) Medical Decision Making - Radiology Data Radiology results: report reviewed <Leann Huynh - Last Filed: 02/25/20 10:10> - Medical Decision Making Patient is a pleasant 79-year-old male who presents emergency department today after a fall complaining of right knee pain and right hip pain. He has full range of motion of the knee with some moderate effusion. Also had some lower extremity swelling to the calf. Therefore ultrasound was completed. This is negative for DVT. X-ray of the knee shows evidence of mild joint effusion, but no acute fracture. Hip x-ray shows evidence of osteoarthritis. No fractures noted. Patient is given Shon wrap and is able to ambulate in emergency room. I discussed Patient with need to follow-up with [facility]. I discussed return parameters. All questions were answered. (Leann Huynh) - Radiology Data Hip x-ray shows mild bilateral hip osteoarthritis and TO pain. No acute fracture is identified. The x-ray shows no acute osseous normality. Small moderate knee effusion is nonspecific. Concern for internal derangement MRI can be completed. Ultrasound is negative for DVT. (Leann Huynh) Disposition Is patient prescribed a controlled substance at d/c from ED?: No Time of Disposition: 10:13 <Leann Huynh - Last Filed: 02/25/20 10:10> <Jelani Spring - Last Filed: 02/25/20 10:34> Clinical Impression: Fall, Effusion, right knee, Knee sprain, Hip sprain Disposition: HOME SELF-CARE Condition: Stable Instructions (If sedation given, give patient instructions): Fall Prevention for Older Adults (ED), Swollen Knee Joint (ED) Additional Instructions: Patient advised to apply ice over the knee. Patient should wear the Shon wrap to help with swelling on the knee. Follow-up with your primary care doctor and orthopedic. Return to the emergency department if any alarming signs or symptoms occur. Prescriptions: Naproxen 500 mg PO BID #12 tablet Referrals: Marco Baltazar DO [Primary Care Provider] - 1-2 days Jeremy Griffith MD [STAFF PHYSICIAN] - 1-2 days
--- NOTE | 2020-02-25 09:26 | XR ---
EXAMINATION TYPE: AP view pelvis and 2 views right hip DATE OF EXAM: 02/25/2020 COMPARISON: NONE HISTORY: 79-year-old male with fall and right hip and knee pain FINDINGS: Osteopenia. Mild degenerative change of both hips. Brachytherapy seeds embedded within the prostate g land. Degenerative changes lower lumbar spine. No acute fracture, subluxation, dislocation seen. IMPRESSION: Mild bilateral hip OA and osteopenia. No acute fracture identified.
--- NOTE | 2020-02-25 09:28 | XR ---
EXAMINATION TYPE: XR knee complete RT DATE OF EXAM: 02/25/2020 COMPARISON: 01/20/2010 HISTORY: 79-year-old male with fall and pain TECHNIQUE: 3 views FINDINGS: Djcub-ue-rdagenve knee joint effusion. Extensor mechanism appears intact. No acute fracture , subluxation, dislocation. Degenerative spurring and degenerative compartment. Small 7 mm loose body within the anterior infrapatellar joint space. IMPRESSION: No acute osseous abnormality. A [id number] knee joint effusion is nonspecific. If concern for internal derangement, MRI can be performed.
--- NOTE | 2020-02-25 09:59 | US ---
EXAMINATION TYPE: US venous doppler duplex LE RT DATE OF EXAM: 02/25/2020 9:51 AM COMPARISON: NONE CLINICAL HISTORY: RLE swelling, erythema. Right leg swelling. On plavix. No hx DVT per patient. SIDE PERFORMED: Right TECHNIQUE: The lower extremity deep venous system is examined utilizing real time linear array sonog fan with graded compression, doppler sonography and color-flow sonography. VESSELS IMAGED: External Iliac Vein (EIV) Common Femoral Vein Deep Femoral Vein Greater Saphenous Vein * Femoral Vein Popliteal Vein Small Saphenous Vein * Proximal Calf Veins (* superficial vessels) Right Leg: Negative for DVT IMPRESSION: 1. Right lower extremity ultrasound negative for deep venous thrombosis.
[2020-02-25 10:39] VITALS: BP 128/72; PULSE 62; TEMP 97.7
== END 2020-02-25 11:00 | disposition home or self-care (01) ==
LOC: EC 08:23
DX: S83.91XA Sprain of unspecified site of right knee, initial encounter (principal); S73.101A Unspecified sprain of right hip, initial encounter; M16.11 Unilateral primary osteoarthritis, right hip; M25.461 Effusion, right knee; H91.90 Unspecified hearing loss, unspecified ear; L98.9 Disorder of the skin and subcutaneous tissue, unspecified; J44.9 Chronic obstructive pulmonary disease, unspecified; E11.9 Type 2 diabetes mellitus without complications; I10 Essential (primary) hypertension; E07.9 Disorder of thyroid, unspecified; R26.89 Other abnormalities of gait and mobility; Z79.51 Long term (current) use of inhaled steroids; Z79.02 Long term (current) use of antithrombotics/antiplatelets; Z79.84 Long term (current) use of oral hypoglycemic drugs; Z79.890 Hormone replacement therapy; Z79.899 Other long term (current) drug therapy; Z99.89 Dependence on other enabling machines and devices; Z85.46 Personal history of malignant neoplasm of prostate; Z87.891 Personal history of nicotine dependence; Z96.0 Presence of urogenital implants; W01.0XXA Fall on same level from slipping, tripping and stumbling without subsequent striking against object, initial encounter; Y92.009 Unspecified place in unspecified non-institutional (private) residence as the place of occurrence of the external cause
CPT/HCPCS: 73502; 99284

== ENCOUNTER → 2020-05-22 | Outpatient (CLI) | payer MEDICARE, OTHER ==
--- NOTE | 2020-05-22 14:09 | FL ---
EXAMINATION TYPE: FL UGI air w small bowel DATE OF EXAM: 05/22/2020 1:54 PM COMPARISON: NONE CLINICAL HISTORY: Abnormal weight loss Preliminary film of the abdomen reveals no definite abnormality. Upper GI examination was performed u tilizing the air contrast technique. Barium and effervescent crystals were swallowed without difficu lty or delay. Esophageal peristalsis and motility are within normal limits. There is no evidence fo r hiatal hernia or esophagitis. Moderate gastroesophageal reflux noted. The stomach has a normal size , shape and position. Small gastric diverticulum seen. No gastric filling defects are seen. No gastr ic ulcer craters are seen. The duodenal bulb and sweep appear to be grossly unremarkable without candice dence for filling defect or ulcer crater. Small bowel follow through is performed with a normal transit time of 120 minutes. The small bowel lo ops are of normal caliber and demonstrate a normal mucosal fold pattern. The terminal ileum is unrem arkable. IMPRESSION: 1. Moderate gastroesophageal reflux. 2. Small gastric diverticulum. Otherwise unremarkable study.
== END | disposition home or self-care (01) ==
LOC: RADFLMAIN 10:17
PROVIDERS: ATTEND Family Medicine
DX: K21.9 Gastro-esophageal reflux disease without esophagitis (principal); K31.4 Gastric diverticulum; R63.4 Abnormal weight loss
CPT/HCPCS: 74240; 74248

== ENCOUNTER 2020-07-16 06:58 | Day surgery (SDC) | payer MEDICARE, OTHER ==
[2020-07-14 16:20] VITALS: BMI 24.0
[2020-07-16] MEDS: LACTATED RINGERS 1,000 ML IV SCH ×2 (07:28→07:33)
[2020-07-16 07:29] LABS: Glucose,Whole Blood 82 mg/dL (75-99)
[2020-07-16 07:31] VITALS: RESP 16; TEMP 97.5
[2020-07-16] MEDS ORDERED: PROPOFOL 10 MG/ML 20 ML VIAL IV ONE (07:40)
[2020-07-16] MEDS ORDERED: LIDOCAINE 1% INJ 10MG/ML (20 ML MDV) ONE (07:40)
--- NOTE | 2020-07-16 08:30 | P.PCN ---
Date of Procedure: 07/16/20 Description of Procedure: Brief history: Patient is a pleasant 80-year-old female presenting for altered bowel function and GERD for EGD and colonoscopy. She reports her constipation with altered bowel function recently had worsening of his constipation. He has lost weight in relation to symptoms. He tried on MiraLAX past for constipation and was given lactulose on recent visit. He is also being given a trial of omeprazole therapy with no improvement in symptoms. Ultrasound in the past showed gallstones versus gallbladder polyp in patient was given surgical referral. Procedure performed: Esophagogastroduodenoscopy with biopsy Colonoscopy with polypectomy Estimated blood loss: Minimal. Preoperative diagnosis: GERD, change in bowel habits Anesthesia: MAC Procedure: After informed consent was obtained from the patient was brought into the endoscopy unit and IV sedation was administered by anesthesia under continuous monitoring. Initially upper endoscopy was done. The Olympus GF 190 video endoscope was inserted into the mouth and esophagus intubated without any difficulty and was gradually advanced into the stomach and duodenum and carefully examined. The bulb and second part of the duodenum appeared normal, except for some mild scattered erythema suggestive of mild duodenitis with biopsies taken. The scope was then withdrawn into the stomach adequately insufflated with air and upon careful examination the antrum and body, cardia and fundus appeared normal, except for some mild punctate erythema suggestive of mild gastritis of the antrum and body with biopsies taken. The scope was then withdrawn into the esophagus. The GE junction was located at 41 cm to the incisors, a 1 cm hiatal hernia was noted. It appeared regular with no erythema erosions or ulcerations. Rest of the esophagus appeared normal. Patient tolerated the procedure well. At this time the patient continued to remain sedation. Initial digital rectal examination was normal. Olympus CF 190 video colonoscope was then inserted into the rectum and gradually advanced to the cecum without any difficulty. Careful examination was performed as the scope was gradually being withdrawn. The prep was excellent. The cecum, ascending colon, transverse colon, descending colon, sigmoid colon and rectum appeared normal. Diminutive polyps measuring 2-3 mm in size removed from the descending colon, transverse colon and sigmoid colon with cold forcep polypectomy. Flat sessile 4 mm descending colon polyp removed with cold snare polypectomy. Multiple small and large diverticula noted in the left colon. Retroflexion was performed in the rectum and no lesions were noted, low- grade internal hemorrhoids seen. Patient tolerated the procedure well. Impression: 1. Mild gastritis of the antrum body, biopsied. Mild duodenitis, biopsied. Small hiatal hernia. 2. 3 diminutive polyps removed with cold forcep polypectomy from the ascending colon transverse colon and sigmoid colon. Small sessile descending colon polyp removed with cold snare polypectomy. Mild left colonic diverticulosis. Low- grade internal hemorrhoids. Recommendations: Findings of this examination were discussed with the patient as well as his son. Okay to resume diet. Okay to resume medications. Continue bowel regimen. Follow-up in GI clinic as scheduled for results of biopsies and polypectomy and further management.
[2020-07-16 08:53] VITALS: BP 141/75; PULSE 92
== END 2020-07-16 09:04 | disposition home or self-care (01) ==
LOC: ORWHC2ENDO 06:58
PROVIDERS: ATTEND Internal Medicine
DX: D12.2 Benign neoplasm of ascending colon (principal); D12.3 Benign neoplasm of transverse colon; D12.4 Benign neoplasm of descending colon; K63.5 Polyp of colon; K21.9 Gastro-esophageal reflux disease without esophagitis; K29.50 Unspecified chronic gastritis without bleeding; K29.80 Duodenitis without bleeding; K44.9 Diaphragmatic hernia without obstruction or gangrene; K57.30 Diverticulosis of large intestine without perforation or abscess without bleeding; K64.8 Other hemorrhoids; I10 Essential (primary) hypertension; J44.9 Chronic obstructive pulmonary disease, unspecified; E11.9 Type 2 diabetes mellitus without complications; E07.9 Disorder of thyroid, unspecified; Z87.891 Personal history of nicotine dependence; Z79.02 Long term (current) use of antithrombotics/antiplatelets; Z79.891 Long term (current) use of opiate analgesic; Z79.84 Long term (current) use of oral hypoglycemic drugs; Z79.890 Hormone replacement therapy; Z79.899 Other long term (current) drug therapy
CPT/HCPCS: 88305; 45380; 45385; 43239; J2001; J2704

== ENCOUNTER → 2020-08-19 | Outpatient (CLI) | payer MEDICARE, OTHER ==
--- NOTE | 2020-08-19 11:35 | US ---
EXAMINATION TYPE: US abdomen complete DATE OF EXAM: 08/19/2020 COMPARISON: US CLINICAL HISTORY: K80.50 Calculus of bile duct without cholangitis o. Gallstones on prior VANCE EXAM MEASUREMENTS: Liver Length: 14.4 cm Gallbladder Wall: 0.2 cm CBD: 0.5 cm Spleen: 10.0 cm Right Kidney: 12.7 x 5.3 x 5.8 cm Left Kidney: 12.0 x 5.3 x 5.0 cm Pancreas: hyperechoic Liver: small liver cyst superior right lobe = 0.5 x 0.5 x 0.5cm Gallbladder: multiple, nonmobile shadowing gallstones seen in neck, fold noted mid lumen; possible w all polyp (with wall comet tail artifact) seen in fundal wall on images #[id number] and # Evidence for sonographic Griffith's sign: no CBD: wnl Spleen: wnl Right Kidney: multiple renal cysts seen in superior pole with largest cyst =1.7 x 1.8 x 1.6cm; later al lower cluster of shadowing calcifications seen = 0.5 x 0.4 x 0.3cm Left Kidney: lower cortex simple renal cyst = 1.7x 1.6 x 1.5cm Upper IVC: wnl Abd Aorta: prominent size superiorly = 2.6cm TR, intimal wall changes imaged throughout and into Com mon Iliac Arteries. IMPRESSION: 1. Cholelithiasis. 2. Renal and hepatic cysts.
== END | disposition home or self-care (01) ==
LOC: RADUSWWP 09:26
PROVIDERS: ATTEND Internal Medicine
DX: K80.20 Calculus of gallbladder without cholecystitis without obstruction (principal); N28.1 Cyst of kidney, acquired; K76.89 Other specified diseases of liver
CPT/HCPCS: 76700

== ENCOUNTER 2020-11-28 12:06 | Emergency (ER) | payer MEDICARE, OTHER ==
[2020-11-28 13:05] LABS: Basophils % (A) 1 %; Eosinophils # (A) 0.1 k/uL (0-0.7); Eosinophils % (A) 1 %; HCT 41.8 % (39.0-53.0); HGB 14.4 gm/dL (13.0-17.5); Lymphocytes # (A) 0.7 k/uL (1.0-4.8); Lymphocytes % (A) 11 %; MCH 30.6 pg (25.0-35.0); MCHC 34.5 g/dL (31.0-37.0); MCV 88.9 fL (80.0-100.0); Mean Platelet Volume 8.6; Monocytes # (A) 0.4 k/uL (0-1.0); Monocytes % (A) 6 %; Neutrophils # (A) 5.2 k/uL (1.3-7.7); Neutrophils % (A) 80 %; Platelet Count 172 k/uL (150-450); RDW 14.2 % (11.5-15.5); WBC 6.6 k/uL (3.8-10.6)
[2020-11-28 13:13] LABS: ALT 23 U/L (4-49); AST 24 U/L (17-59); African American GFR (CKD) >90 (>60 ml/min/1.73 sqM); Alkaline Phosphatase 68 U/L (38-126); Amylase 74 U/L (30-110); Anion Gap 5 mmol/L; Blood Urea Nitrogen 21 mg/dL (9-20); Calcium 9.4 mg/dL (8.4-10.2); Carbon Dioxide 28 mmol/L (22-30); Chloride 103 mmol/L (98-107); Glucose 131 mg/dL (74-99); Lipase 86 U/L (23-300); Non-African American GFR(CKD) >90 (>60 ml/min/1.73 sqM); Sodium 136 mmol/L (137-145); Total Bilirubin 0.4 mg/dL (0.2-1.3); Total Protein 6.7 g/dL (6.3-8.2)
[2020-11-28 13:13] LABS: Amorphous Sediment,Urine Rare /hpf; Appearance,Urine Cloudy (Clear); Bilirubin,Urine Negative (Negative); Blood,Urine Negative (Negative); Color,Urine Light Yellow; Glucose,Urine (UA) Negative (Negative); Ketones,Urine Negative (Negative); Leukocyte Esterase,Urine Negative (Negative); Nitrite,Urine Negative (Negative); Protein,Urine Negative (Negative); RBC,Urine 1 /hpf (0-5); Specific Gravity,Urine 1.009 (1.001-1.035); Urobilinogen,Urine <2.0 mg/dL (<2.0); WBC,Urine 1 /hpf (0-5)
--- NOTE | 2020-11-28 14:34 | CT ---
EXAMINATION TYPE: CT abdomen pelvis w con DATE OF EXAM: 11/28/2020 COMPARISON: None HISTORY: Abdominal pain CT DLP: 1079.3 mGycm Automated exposure control for dose reduction was used. CONTRAST: Performed with IV Contrast, patient injected with 100 mL of Isovue 370. Images obtained from the diaphragm to the floor the pelvis with IV contrast. There is mild subsegmental atelectasis at the lung bases. Heart size is fairly normal. There is no pe ricardial effusion. There is no pleural effusion. Liver shows no focal defect. Gallbladder is large and measures 4 cm in diameter. Spleen is intact. Th ere is no pancreatic mass. Stomach is intact. There is no adrenal mass. There are small cortical cyst upper pole right kidney. There is bilateral h ydronephrosis. There are 5 mm calculi posterior right kidney. The ureters are not dilated. The delaye d images show fairly normal renal excretion. There is no retroperitoneal adenopathy. Abdominal aorta is atheromatous. Bladder distends smoothly. There is no inguinal hernia. There are prostate implants. There are numerous sigmoid diverticula. There is no sign of diverticulitis. Appendix is posterior an d appears normal. There is no mesenteric edema. There is no ascites or free air. There is no bowel obstruction. Lumbar vertebra have normal alignment. There is 30% compression deformity of L1 vertebral body with a nterior wedging. There is hypertrophic facet arthropathy with spinal stenosis at L3-4 and L4-5. The bony pelvis is intact. Hip joints are intact. IMPRESSION: Nonobstructing right renal calculi. Bilateral hydronephrosis that could relate to previous episode of obstruction. Large gallbladder may indicate some degree of gallbladder dysfunction. No dilated ducts. Sigmoid dive rticulosis without diverticulitis. There is significant clearing of the basilar pulmonary infiltrates and atelectasis compared to old CT scan of 05/15/2013.
--- NOTE | 2020-11-28 14:52 | ED ---
Abdominal Pain HPI - General Chief Complaint: Abdominal Pain Stated Complaint: Abd Pain Time Seen by Provider: 11/28/20 12:22 Source: patient, EMS Mode of arrival: EMS Limitations: no limitations - History of Present Illness Initial Comments: 80-year-old male presenting today for chief complaint of right-sided abdominal pain. Patient states he believes was a problem with his "gallbladder". Patient states he has had right lower abdominal pain that had begun last night. He states he currently has no pain. Patient denies constipation he states he had a bowel movement that was normal this morning he denies diarrhea nausea vomiting upper abdominal pain chest pain shortness of breath fevers he denies decreased appetite. Patient denies any dark tarry or bloody stools he has no additional complaints upon arrival patient appears well nontoxic in no acute distress - Related Data Home Medications Medication Instructions Recorded Confirmed Cholecalciferol (Vitamin D3) 2,000 unit PO DAILY 09/10/18 11/28/20 [Vitamin D3] Clopidogrel [Plavix] 75 mg PO DAILY 09/10/18 11/28/20 [place]-3 Fatty Acids/Fish Oil [Fish 1 cap PO DAILY 09/10/18 11/28/20 Oil 1,000 mg Softgel] Telmisartan [Micardis] 80 mg PO QAM 09/10/18 11/28/20 Tiotropium [place] [Spiriva] 1 cap INHALATION QAM 09/10/18 11/28/20 amLODIPine BESYLATE [Norvasc] 5 mg PO QAM 09/10/18 11/28/20 traZODone HCL 50 mg PO HS 09/10/18 11/28/20 Docusate [Colace] 100 mg PO BID 05/21/19 11/28/20 sitaGLIPtin [Januvia] 50 mg PO DAILY 05/21/19 11/28/20 Melatonin 3 mg PO HS 07/14/20 11/28/20 calcium polycarbophiL [Fibercon] 625 mg PO HS 07/14/20 11/28/20 Mirabegron [Myrbetriq] 50 mg PO DAILY 07/15/20 11/28/20 Calcium Carbonate [Calcium] 600 mg PO BID 11/28/20 11/28/20 Lactulose 20 gm PO DAILY 11/28/20 11/28/20 Levothyroxine Sodium [Synthroid] 112 mcg PO DAILY 11/28/20 11/28/20 Metoprolol Tartrate [Lopressor] 25 mg PO BID 11/28/20 Pregabalin [Lyrica] 25 mg PO BID 11/28/20 11/28/20 Allergies Allergy/AdvReac Type Severity Reaction Status Date / Time No Known Allergies Allergy Verified 11/28/20 14:10 Review of Systems ROS Statement: Those systems with pertinent positive or pertinent negative responses have been documented in the HPI. ROS Other: All systems not noted in ROS Statement are negative. Past Medical History Past Medical History: Cancer, COPD, Diabetes Mellitus, Hyperlipidemia, Hypertension, Thyroid Disorder Additional Past Medical History / Comment(s): "BENIGN TREMORS, USES A CANE., HX OF PROSTATE CANCER WITH "SEED IMPLANTS ., FREQUENT URINATION., RIGHT INGUINAL HERNIA. History of Any Multi-Drug Resistant Organisms: None Reported Past Surgical History: Hernia Repair, Orthopedic Surgery Additional Past Surgical History / Comment(s): LEFT ROTATOR CUFF ., PROSTATE SEED IMPLANTS.CATARACTS WITH IMPLANTS Past Anesthesia/Blood Transfusion Reactions: Postoperative Nausea & Vomiting (PONV) Past Psychological History: No Psychological Hx Reported Smoking Status: Former smoker Past Alcohol Use History: None Reported Past Drug Use History: None Reported - Past Family History Mother Family Medical History: Cancer Additional Family Medical History / Comment(s): BREAST CANCER General Exam - General Exam Comments Initial Comments: General: The patient is awake and alert, in no distress Eye: Pupils are equal, round and reactive to light, extra-ocular movements are intact. No nystagmus. There is normal conjunctiva bilaterally. No signs of icterus. Ears, nose, mouth and throat: There are moist mucous membranes and no oral lesi ons. Neck: The neck is supple, there is no tenderness or JVD. Cardiovascular: There is a regular rate and rhythm. No murmur, rub or gallop is appreciated. Respiratory: Lungs are clear to auscultation, respirations are non-labored, breath sounds are equal. No wheezes, stridor, rales, or rhonchi. Gastrointestinal: Soft, non-distended, definitely right lower quadrant pain, there is no right upper quadrant pain negative Griffith sign, abdomen without masses or organomegaly noted. There is no rebound or guarding present. No CVA tenderness. Musculoskeletal: Normal ROM, no tenderness. Strength 5/5. Sensation intact. Radial pulses equal bilaterally 2+. Neurological: A&O x 3. CN II-XII intact grossly, There are no obvious motor or sensory deficits. Coordination appears grossly intact. Speech is normal. Skin: Skin is warm and dry and no rashes or lesions are noted. Psychiatric: Cooperative, appropriate mood & affect, normal judgment. Limitations: no limitations Course Vital Signs 11/28/20 11/28/20 11/28/20 12:10 13:07 14:00 Temperature 98.2 F Pulse Rate 105 H 100 97 Respiratory 18 16 16 Rate Blood Pressure 161/97 156/86 126/69 O2 Sat by Pulse 97 95 95 Oximetry 11/28/20 15:00 Temperature 98.0 F Pulse Rate 106 H Respiratory 18 Rate Blood Pressure 128/67 O2 Sat by Pulse 95 Oximetry Medical Decision Making - Medical Decision Making CT (-) for acute process. Gallstones noted. no inflammatory changes noted. no appendcitis or diverticulitis identified. pt currently pain free. no RUQ pain. Pt has no increase in bilirubin nor lvier enzymes. pt EKG LBBB no previous comparison but no complaints of CP/Upper abdominal pain or dyspnea. Patient appears nontoxic. discussedc ase with Dr Lerma who is agreeable to care plan and discharge. Ventricular rate of 100 bpm, IA interval 168 ms, QRS duration 128 ms, QT/QTC 360/464. There is no ST elevation or depression there is a left bundle branch block noted - Lab Data Result diagrams: 11/28/20 12:57 11/28/20 12:57 Lab Results 11/28/20 11/28/20 11/28/20 Range/Units 12:57 12:57 13:06 WBC 6.6 (3.8-10.6) k/uL RBC 4.70 (4.30-5.90) m/uL Hgb 14.4 (13.0-17.5) gm/dL Hct 41.8 (39.0-53.0) % MCV 88.9 (80.0-100.0) fL MCH 30.6 (25.0-35.0) pg MCHC 34.5 (31.0-37.0) g/dL RDW 14.2 (11.5-15.5) % Plt Count 172 (150-450) k/uL MPV 8.6 Neutrophils % 80 % Lymphocytes % 11 % Monocytes % 6 % Eosinophils % 1 % Basophils % 1 % Neutrophils # 5.2 (1.3-7.7) k/uL Lymphocytes # 0.7 L (1.0-4.8) k/uL Monocytes # 0.4 (0-1.0) k/uL Eosinophils # 0.1 (0-0.7) k/uL Basophils # 0.0 (0-0.2) k/uL Sodium 136 L (137-145) mmol/L Potassium 4.0 (3.5-5.1) mmol/L Chloride 103 (98-107) mmol/L Carbon Dioxide 28 (22-30) mmol/L Anion Gap 5 mmol/L BUN 21 H (9-20) mg/dL Creatinine 0.65 L (0.66-1.25) mg/dL Est GFR (CKD-EPI)AfAm >90 (>60 ml/min/1.73 sqM) Est GFR (CKD-EPI)NonAf >90 (>60 ml/min/1.73 sqM) Glucose 131 H (74-99) mg/dL Calcium 9.4 (8.4-10.2) mg/dL Total Bilirubin 0.4 (0.2-1.3) mg/dL AST 24 (17-59) U/L ALT 23 (4-49) U/L Alkaline Phosphatase 68 (38-126) U/L Total Protein 6.7 (6.3-8.2) g/dL Albumin 4.0 (3.5-5.0) g/dL Amylase 74 (30-110) U/L Lipase 86 (23-300) U/L Urine Color Light Yellow Urine Appearance Cloudy (Clear) Urine pH 7.0 (5.0-8.0) Ur Specific [place] 1.009 (1.001-1.035) Urine Protein Negative (Negative) Urine Glucose (UA) Negative (Negative) Urine Ketones Negative (Negative) Urine Blood Negative (Negative) Urine Nitrite Negative (Negative) Urine Bilirubin Negative (Negative) Urine Urobilinogen <2.0 (<2.0) mg/dL Ur Leukocyte Esterase Negative (Negative) Urine RBC 1 (0-5) /hpf Urine WBC 1 (0-5) /hpf Amorphous Sediment Rare H (None) /hpf Disposition Clinical Impression: Abdominal pain, Gallstone Disposition: HOME SELF-CARE Condition: Good Instructions (If sedation given, give patient instructions): Gallstones (ED), Abdominal Pain (ED) Additional Instructions: Please use medication as discussed. Please follow-up with family doctor in the next 2 days as well as general surgery. Please return to emergency room if the symptoms increase or worsen or for any other concerns. Is patient prescribed a controlled substance at d/c from ED?: No Referrals: Marco Baltazar DO [Primary Care Provider] - 1-2 days Jorgito Odonnell MD [Medical Doctor] - 1-2 days Time of Disposition: 14:52
[2020-11-28] MEDS ORDERED: AZITHROMYCIN 500 MG TAB PO STA (15:08)
[2020-11-28 15:23] VITALS: BP 128/67; PULSE 106; RESP 18; TEMP 98
== END 2020-11-28 15:00 | disposition home or self-care (01) ==
LOC: EC 12:06
DX: K80.20 Calculus of gallbladder without cholecystitis without obstruction (principal); J44.9 Chronic obstructive pulmonary disease, unspecified; E11.9 Type 2 diabetes mellitus without complications; E78.5 Hyperlipidemia, unspecified; I10 Essential (primary) hypertension; E07.9 Disorder of thyroid, unspecified; Z79.02 Long term (current) use of antithrombotics/antiplatelets; Z79.84 Long term (current) use of oral hypoglycemic drugs; Z79.890 Hormone replacement therapy; Z79.899 Other long term (current) drug therapy; Z87.891 Personal history of nicotine dependence; Z98.42 Cataract extraction status, left eye; Z98.41 Cataract extraction status, right eye; Z96.1 Presence of intraocular lens; Z85.46 Personal history of malignant neoplasm of prostate; Z80.3 Family history of malignant neoplasm of breast
CPT/HCPCS: 36415; 93005; 80053; 82150; 83690; 85025; 81001; 74177; 99284; Q9967

== ENCOUNTER 2022-05-17 21:28 | Emergency (ER) | payer MEDICARE, OTHER ==
[2022-05-17] MEDS ORDERED: IBUPROFEN 600 MG TAB PO STA (21:40)
[2022-05-17] MEDS ORDERED: ACETAMINOPHEN TAB 500 MG TAB PO STA (21:40)
--- NOTE | 2022-05-17 21:49 | ED ---
Weakness HPI - General Chief complaint: Weakness Stated complaint: Weakness Time Seen by Provider: 05/17/22 21:34 Source: EMS, RN notes reviewed, old records reviewed, Caregiver Mode of arrival: EMS Limitations: language barrier (Difficulty hearing) - History of Present Illness Initial comments: This is an 82-year-old male poor historian coming in for evaluation of not feeling well weakness and a fall today patient also has fevers mild nausea no vomiting no shortness of breath no diarrhea no pain. Mainly just overall weakness no known sick contacts patient has been immunized MD Complaint: generalized weakness, lack of energy, difficulty walking -: hour(s) Location: generalized Severity: moderate Severity scale (1-10): 6 Consistency: constant Worsens with: none Context: recent illness, history of similar Associated Symptoms: fever/chills, loss of appetite, myalgias - Related Data Home Medications Medication Instructions Recorded Confirmed Cholecalciferol (Vitamin D3) 2,000 unit PO DAILY 09/10/18 11/28/20 [Vitamin D3] Clopidogrel [Plavix] 75 mg PO DAILY 09/10/18 11/28/20 [place]-3 Fatty Acids/Fish Oil [Fish 1 cap PO DAILY 09/10/18 11/28/20 Oil 1,000 mg Softgel] Telmisartan [Micardis] 80 mg PO QAM 09/10/18 11/28/20 Tiotropium [place] [Spiriva] 1 cap INHALATION QAM 09/10/18 11/28/20 amLODIPine BESYLATE [Norvasc] 5 mg PO QAM 09/10/18 11/28/20 traZODone HCL 50 mg PO HS 09/10/18 11/28/20 Docusate [Colace] 100 mg PO BID 05/21/19 11/28/20 sitaGLIPtin [Januvia] 50 mg PO DAILY 05/21/19 11/28/20 Melatonin 3 mg PO HS 07/14/20 11/28/20 calcium polycarbophiL [Fibercon] 625 mg PO HS 07/14/20 11/28/20 Mirabegron [Myrbetriq] 50 mg PO DAILY 07/15/20 11/28/20 Calcium Carbonate [Calcium] 600 mg PO BID 11/28/20 11/28/20 Lactulose 20 gm PO DAILY 11/28/20 11/28/20 Levothyroxine Sodium [Synthroid] 112 mcg PO DAILY 11/28/20 11/28/20 Metoprolol Tartrate [Lopressor] 25 mg PO BID 11/28/20 Pregabalin [Lyrica] 25 mg PO BID 11/28/20 11/28/20 Allergies Allergy/AdvReac Type Severity Reaction Status Date / Time No Known Allergies Allergy Verified 11/28/20 14:10 Review of Systems ROS Statement: Those systems with pertinent positive or pertinent negative responses have been documented in the HPI. ROS Other: All systems not noted in ROS Statement are negative. Past Medical History Past Medical History: Cancer, COPD, Diabetes Mellitus, Hyperlipidemia, Hypertension, Thyroid Disorder Additional Past Medical History / Comment(s): "BENIGN TREMORS, USES A CANE., HX OF PROSTATE CANCER WITH "SEED IMPLANTS ., FREQUENT URINATION., RIGHT INGUINAL HERNIA. History of Any Multi-Drug Resistant Organisms: None Reported Past Surgical History: Hernia Repair, Orthopedic Surgery Additional Past Surgical History / Comment(s): LEFT ROTATOR CUFF ., PROSTATE SEED IMPLANTS.CATARACTS WITH IMPLANTS Past Anesthesia/Blood Transfusion Reactions: Postoperative Nausea & Vomiting (PONV) Past Psychological History: No Psychological Hx Reported Smoking Status: Former smoker Past Alcohol Use History: None Reported Past Drug Use History: None Reported - Past Family History Mother Family Medical History: Cancer Additional Family Medical History / Comment(s): BREAST CANCER General Exam General appearance: alert, in no apparent distress Head exam: Present: atraumatic, normocephalic, normal inspection Eye exam: Present: normal appearance, PERRL, EOMI. Absent: scleral icterus, conjunctival injection, periorbital swelling ENT exam: Present: normal exam, mucous membranes moist Neck exam: Present: normal inspection. Absent: tenderness, meningismus, lymphadenopathy Respiratory exam: Present: normal lung sounds bilaterally. Absent: respiratory distress, wheezes, rales, rhonchi, stridor Cardiovascular Exam: Present: regular rate, normal rhythm, normal heart sounds. Absent: systolic murmur, diastolic murmur, rubs, gallop, clicks GI/Abdominal exam: Present: soft, normal bowel sounds. Absent: distended, tenderness, guarding, rebound, rigid Extremities exam: Present: normal inspection, full ROM, normal capillary refill. Absent: tenderness, pedal edema, joint swelling, calf tenderness Back exam: Present: normal inspection Neurological exam: Present: alert, oriented X3, CN II-XII intact Psychiatric exam: Present: normal affect, normal mood Skin exam: Present: warm, dry, intact, normal color. Absent: rash Course Vital Signs 05/17/22 21:34 Temperature 101 F H Pulse Rate 101 H Respiratory 24 Rate Blood Pressure 120/68 O2 Sat by Pulse 94 L Oximetry - Reevaluation(s) Reevaluation #1: 05/18/22 00:01 Record is reviewed Reevaluation #2: 05/18/22 00:01 Patient feels well feels comfortable for discharge Reevaluation #3: 05/18/22 00:01 Given anti-body treatment here in the emergency department Reevaluation #4: 05/18/22 00:02 Patient family informed of results and questions have been answered EKG Findings - EKG Comments: EKG Findings:: EKG is sinus rhythm 96 [place] 172 QRS 127 QTC 414 Medical Decision Making - Medical Decision Making 82 male to the emergency department for diagnosis of coronavirus. Patient feels well currently able to eat and drink discharged home - Lab Data Result diagrams: 05/17/22 22:03 05/17/22 22:03 Lab Results 05/17/22 05/17/22 05/17/22 Range/Units 22:03 22:03 22:03 WBC 6.6 (3.8-10.6) k/uL RBC 4.34 (4.30-5.90) m/uL Hgb 13.7 (13.0-17.5) gm/dL Hct 40.1 (39.0-53.0) % MCV 92.4 (80.0-100.0) fL MCH 31.5 (25.0-35.0) pg MCHC 34.1 (31.0-37.0) g/dL RDW 13.2 (11.5-15.5) % Plt Count 135 L (150-450) k/uL MPV 9.8 Neutrophils % 75 % Lymphocytes % 5 % Monocytes % 15 % Eosinophils % 0 % Basophils % 1 % Neutrophils # 4.9 (1.3-7.7) k/uL Lymphocytes # 0.3 L (1.0-4.8) k/uL Monocytes # 1.0 (0-1.0) k/uL Eosinophils # 0.0 (0-0.7) k/uL Basophils # 0.1 (0-0.2) k/uL PT (9.0-12.0) sec INR (<1.2) APTT (22.0-30.0) sec Sodium (137-145) mmol/L Potassium (3.5-5.1) mmol/L Chloride (98-107) mmol/L Carbon Dioxide (22-30) mmol/L Anion Gap mmol/L BUN (9-20) mg/dL Creatinine (0.66-1.25) mg/dL Est GFR (CKD-EPI)AfAm (>60 ml/min/1.73 sqM) Est GFR (CKD-EPI)NonAf (>60 ml/min/1.73 sqM) Glucose (74-99) mg/dL Plasma Lactic Acid Woo (0.7-2.0) mmol/L Calcium (8.4-10.2) mg/dL Phosphorus (2.5-4.5) mg/dL Magnesium (1.6-2.3) mg/dL Total Bilirubin (0.2-1.3) mg/dL AST (17-59) U/L ALT (4-49) U/L Alkaline Phosphatase (38-126) U/L Troponin I (0.000-0.034) ng/mL NT-Pro-B Natriuret Pep pg/mL Total Protein (6.3-8.2) g/dL Albumin (3.5-5.0) g/dL TSH (0.465-4.680) mIU/L Urine Color Urine Appearance (Clear) Urine pH (5.0-8.0) Ur Specific [place] (1.001-1.035) Urine Protein (Negative) Urine Glucose (UA) (Negative) Urine Ketones (Negative) Urine Blood (Negative) Urine Nitrite (Negative) Urine Bilirubin (Negative) Urine Urobilinogen (<2.0) mg/dL Ur Leukocyte Esterase (Negative) Urine RBC (0-5) /hpf Urine WBC (0-5) /hpf Hyaline Casts (0-2) /lpf Urine Mucus (None) /hpf Coronavirus (PCR) Detected A (Not Detectd) Influenza Type A RNA Not Detected (Not Detectd) Influenza Type B (PCR) Not Detected (Not Detectd) 05/17/22 05/17/22 05/17/22 Range/Units 22:03 22:03 22:03 WBC (3.8-10.6) k/uL RBC (4.30-5.90) m/uL Hgb (13.0-17.5) gm/dL Hct (39.0-53.0) % MCV (80.0-100.0) fL MCH (25.0-35.0) pg MCHC (31.0-37.0) g/dL RDW (11.5-15.5) % Plt Count (150-450) k/uL MPV Neutrophils % % Lymphocytes % % Monocytes % % Eosinophils % % Basophils % % Neutrophils # (1.3-7.7) k/uL Lymphocytes # (1.0-4.8) k/uL Monocytes # (0-1.0) k/uL Eosinophils # (0-0.7) k/uL Basophils # (0-0.2) k/uL PT 11.1 (9.0-12.0) sec INR 1.0 (<1.2) APTT 27.0 (22.0-30.0) sec Sodium 129 L (137-145) mmol/L Potassium 4.3 (3.5-5.1) mmol/L Chloride 100 (98-107) mmol/L Carbon Dioxide 23 (22-30) mmol/L Anion Gap 6 mmol/L BUN 24 H (9-20) mg/dL Creatinine 0.91 (0.66-1.25) mg/dL Est GFR (CKD-EPI)AfAm 90 (>60 ml/min/1.73 sqM) Est GFR (CKD-EPI)NonAf 78 (>60 ml/min/1.73 sqM) Glucose 146 H (74-99) mg/dL Plasma Lactic Acid Woo 1.2 (0.7-2.0) mmol/L Calcium 8.5 (8.4-10.2) mg/dL Phosphorus 2.3 L (2.5-4.5) mg/dL Magnesium 1.9 (1.6-2.3) mg/dL Total Bilirubin 0.4 (0.2-1.3) mg/dL AST 35 (17-59) U/L ALT 31 (4-49) U/L Alkaline Phosphatase 75 (38-126) U/L Troponin I (0.000-0.034) ng/mL NT-Pro-B Natriuret Pep pg/mL Total Protein 5.7 L (6.3-8.2) g/dL Albumin 3.5 (3.5-5.0) g/dL TSH 1.430 (0.465-4.680) mIU/L Urine Color Urine Appearance (Clear) Urine pH (5.0-8.0) Ur Specific [place] (1.001-1.035) Urine Protein (Negative) Urine Glucose (UA) (Negative) Urine Ketones (Negative) Urine Blood (Negative) Urine Nitrite (Negative) Urine Bilirubin (Negative) Urine Urobilinogen (<2.0) mg/dL Ur Leukocyte Esterase (Negative) Urine RBC (0-5) /hpf Urine WBC (0-5) /hpf Hyaline Casts (0-2) /lpf Urine Mucus (None) /hpf Coronavirus (PCR) (Not Detectd) Influenza Type A RNA (Not Detectd) Influenza Type B (PCR) (Not Detectd) 05/17/22 05/17/22 05/17/22 Range/Units 22:03 22:03 22:22 WBC (3.8-10.6) k/uL RBC (4.30-5.90) m/uL Hgb (13.0-17.5) gm/dL Hct (39.0-53.0) % MCV (80.0-100.0) fL MCH (25.0-35.0) pg MCHC (31.0-37.0) g/dL RDW (11.5-15.5) % Plt Count (150-450) k/uL MPV Neutrophils % % Lymphocytes % % Monocytes % % Eosinophils % % Basophils % % Neutrophils # (1.3-7.7) k/uL Lymphocytes # (1.0-4.8) k/uL Monocytes # (0-1.0) k/uL Eosinophils # (0-0.7) k/uL Basophils # (0-0.2) k/uL PT (9.0-12.0) sec INR (<1.2) APTT (22.0-30.0) sec Sodium (137-145) mmol/L Potassium (3.5-5.1) mmol/L Chloride (98-107) mmol/L Carbon Dioxide (22-30) mmol/L Anion Gap mmol/L BUN (9-20) mg/dL Creatinine (0.66-1.25) mg/dL Est GFR (CKD-EPI)AfAm (>60 ml/min/1.73 sqM) Est GFR (CKD-EPI)NonAf (>60 ml/min/1.73 sqM) Glucose (74-99) mg/dL Plasma Lactic Acid Woo (0.7-2.0) mmol/L Calcium (8.4-10.2) mg/dL Phosphorus (2.5-4.5) mg/dL Magnesium (1.6-2.3) mg/dL Total Bilirubin (0.2-1.3) mg/dL AST (17-59) U/L ALT (4-49) U/L Alkaline Phosphatase (38-126) U/L Troponin I 0.029 (0.000-0.034) ng/mL NT-Pro-B Natriuret Pep 886 pg/mL Total Protein (6.3-8.2) g/dL Albumin (3.5-5.0) g/dL TSH (0.465-4.680) mIU/L Urine Color Yellow Urine Appearance Clear (Clear) Urine pH 5.5 (5.0-8.0) Ur Specific [place] 1.022 (1.001-1.035) Urine Protein 1+ H (Negative) Urine Glucose (UA) 2+ H (Negative) Urine Ketones Negative (Negative) Urine Blood Small H (Negative) Urine Nitrite Negative (Negative) Urine Bilirubin Negative (Negative) Urine Urobilinogen <2.0 (<2.0) mg/dL Ur Leukocyte Esterase Negative (Negative) Urine RBC 4 (0-5) /hpf Urine WBC 2 (0-5) /hpf Hyaline Casts 3 H (0-2) /lpf Urine Mucus Occasional H (None) /hpf Coronavirus (PCR) (Not Detectd) Influenza Type A RNA (Not Detectd) Influenza Type B (PCR) (Not Detectd) - Radiology Data Radiology results: report reviewed (Chest x-rays negative for acute disease), image reviewed Disposition Clinical Impression: Coronavirus infection, Fever, Dehydration Disposition: HOME SELF-CARE Condition: Good Instructions (If sedation given, give patient instructions): Coronavirus Diseas e 2019 (COVID-19) Is patient prescribed a controlled substance at d/c from ED?: No Referrals: Marco Baltazar DO [Primary Care Provider] - 1-2 days
[2022-05-17 22:25] LABS: Prothrombin Time 11.1 sec (9.0-12.0)
--- NOTE | 2022-05-17 22:26 | XR ---
EXAMINATION TYPE: XR chest 1V portable DATE OF EXAM: 05/17/2022 COMPARISON: 05/14/2020 HISTORY: Short of breath TECHNIQUE: FINDINGS: There is some mild atelectasis at the lung bases. Heart size is normal. There are no hilar masses. There are chest leads. Bony thorax is intact. IMPRESSION: There is some mild subsegmental Atelectasis. Normal heart.
[2022-05-17 22:29] LABS: Albumin 3.5 g/dL (3.5-5.0); Calcium 8.5 mg/dL (8.4-10.2); Magnesium 1.9 mg/dL (1.6-2.3); Phosphorus 2.3 mg/dL (2.5-4.5); Potassium 4.3 mmol/L (3.5-5.1); Total Bilirubin 0.4 mg/dL (0.2-1.3); Total Protein 5.7 g/dL (6.3-8.2)
[2022-05-17 22:46] LABS: Basophils # (A) 0.1 k/uL (0-0.2); Basophils % (A) 1 %; Eosinophils % (A) 0 %; HCT 40.1 % (39.0-53.0); HGB 13.7 gm/dL (13.0-17.5); Lymphocytes # (A) 0.3 k/uL (1.0-4.8); Lymphocytes % (A) 5 %; MCH 31.5 pg (25.0-35.0); MCHC 34.1 g/dL (31.0-37.0); MCV 92.4 fL (80.0-100.0); Mean Platelet Volume 9.8; Monocytes % (A) 15 %; Neutrophils # (A) 4.9 k/uL (1.3-7.7); Neutrophils % (A) 75 %; Platelet Count 135 k/uL (150-450); RBC 4.34 m/uL (4.30-5.90); RDW 13.2 % (11.5-15.5); WBC 6.6 k/uL (3.8-10.6)
[2022-05-17 23:20] LABS: Appearance,Urine Clear (Clear); Bilirubin,Urine Negative (Negative); Blood,Urine Small (Negative); Color,Urine Yellow; Glucose,Urine (UA) 2+ (Negative); Hyaline Casts,Urine 3 /lpf (0-2); Ketones,Urine Negative (Negative); Leukocyte Esterase,Urine Negative (Negative); Mucus,Urine Occasional /hpf; Nitrite,Urine Negative (Negative); PH, Urine 5.5 (5.0-8.0); Protein,Urine 1+ (Negative); RBC,Urine 4 /hpf (0-5); Specific Gravity,Urine 1.022 (1.001-1.035); Urobilinogen,Urine <2.0 mg/dL (<2.0); WBC,Urine 2 /hpf (0-5)
[2022-05-17] MEDS ORDERED: DEXAMETHASONE SOD PHOSPHATE 10 MG/ML 1 ML VIAL IVP STA (23:58)
[2022-05-18] MEDS ORDERED: BEBTELOVIMAB (EUA) 175 MG/2 ML VIAL IV ONE (00:30)
[2022-05-18 02:07] VITALS: BP 142/89; PULSE 80; RESP 18; TEMP 97.7
== END 2022-05-18 02:07 | disposition home or self-care (01) ==
LOC: EC 21:28
DX: U07.1 COVID-19 (principal); E86.0 Dehydration; J44.9 Chronic obstructive pulmonary disease, unspecified; E11.9 Type 2 diabetes mellitus without complications; E78.5 Hyperlipidemia, unspecified; I10 Essential (primary) hypertension; E07.9 Disorder of thyroid, unspecified; Z87.891 Personal history of nicotine dependence; Z79.899 Other long term (current) drug therapy; Z79.51 Long term (current) use of inhaled steroids; Z79.890 Hormone replacement therapy
CPT/HCPCS: 36415; 71045; 80053; 81001; 83605; 83735; 83880; 84100; 84443; 84484; 85025; 85610; 85730; 87040; 87502; 87635; 93005; 99285

== ENCOUNTER 2023-04-27 05:39 | Emergency (ER) | payer MEDICARE, OTHER ==
[2023-04-27 05:49] VITALS: RESP 18
[2023-04-27] MEDS ORDERED: BACITRACIN OINT 1 EACH PACKET TOPICAL ONE (06:35)
--- NOTE | 2023-04-27 06:52 | ED ---
Fall HPI - General Chief Complaint: Fall Stated Complaint: Fall Time Seen by Provider: 04/27/23 06:06 Source: patient, EMS, RN notes reviewed Mode of arrival: EMS Limitations: no limitations - History of Present Illness Initial Comments: 83-year-old male presents emergency Department chief complaint of fall at home. Patient is up walking when he a mechanical fall per report. Patient is very hard of hearing. Patient has no complaints of pain but is noted to have small abrasion to the left periorbital region he denies any head or neck pain patient was placed in a c-collar by EMS. Patient reports to be on blood thinners. Denies any back, extremity pain, hip pain. - Related Data Home Medications Medication Instructions Recorded Confirmed Cholecalciferol (Vitamin D3) 2,000 unit PO DAILY 09/10/18 11/28/20 [Vitamin D3] Clopidogrel [Plavix] 75 mg PO DAILY 09/10/18 11/28/20 [place]-3 Fatty Acids/Fish Oil [Fish 1 cap PO DAILY 09/10/18 11/28/20 Oil 1,000 mg Softgel] Telmisartan [Micardis] 80 mg PO QAM 09/10/18 11/28/20 Tiotropium [place] [Spiriva] 1 cap INHALATION QAM 09/10/18 11/28/20 amLODIPine BESYLATE [Norvasc] 5 mg PO QAM 09/10/18 11/28/20 traZODone HCL 50 mg PO HS 09/10/18 11/28/20 Docusate [Colace] 100 mg PO BID 05/21/19 11/28/20 sitaGLIPtin [Januvia] 50 mg PO DAILY 05/21/19 11/28/20 Melatonin 3 mg PO HS 07/14/20 11/28/20 calcium polycarbophiL [Fibercon] 625 mg PO HS 07/14/20 11/28/20 Mirabegron [Myrbetriq] 50 mg PO DAILY 07/15/20 11/28/20 Calcium Carbonate [Calcium] 600 mg PO BID 11/28/20 11/28/20 Lactulose 20 gm PO DAILY 11/28/20 11/28/20 Levothyroxine Sodium [Synthroid] 112 mcg PO DAILY 11/28/20 11/28/20 Metoprolol Tartrate [Lopressor] 25 mg PO BID 11/28/20 Pregabalin [Lyrica] 25 mg PO BID 11/28/20 11/28/20 Allergies Allergy/AdvReac Type Severity Reaction Status Date / Time No Known Allergies Allergy Verified 11/28/20 14:10 Review of Systems ROS Statement: Those systems with pertinent positive or pertinent negative responses have been documented in the HPI. ROS Other: All systems not noted in ROS Statement are negative. Past Medical History Past Medical History: Cancer, COPD, Diabetes Mellitus, Hyperlipidemia, Hypertension, Thyroid Disorder Additional Past Medical History / Comment(s): "BENIGN TREMORS, USES A CANE., HX OF PROSTATE CANCER WITH "SEED IMPLANTS ., FREQUENT URINATION., RIGHT INGUINAL HERNIA. History of Any Multi-Drug Resistant Organisms: None Reported Past Surgical History: Hernia Repair, Orthopedic Surgery Additional Past Surgical History / Comment(s): LEFT ROTATOR CUFF ., PROSTATE SEED IMPLANTS.CATARACTS WITH IMPLANTS Past Anesthesia/Blood Transfusion Reactions: Postoperative Nausea & Vomiting (PONV) Past Psychological History: No Psychological Hx Reported Smoking Status: Former smoker Past Alcohol Use History: None Reported Past Drug Use History: None Reported - Past Family History Mother Family Medical History: Cancer Additional Family Medical History / Comment(s): BREAST CANCER General Exam Limitations: no limitations General appearance: alert, in no apparent distress Head exam: Present: atraumatic, normocephalic, normal inspection Eye exam: Present: normal appearance, PERRL, EOMI. Absent: scleral icterus, conjunctival injection, periorbital swelling, periorbital tenderness (Left periorbital abrasion) ENT exam: Present: normal exam, normal oropharynx, mucous membranes moist Neck exam: Present: normal inspection. Absent: tenderness, meningismus, full ROM (Patient's c-collar), lymphadenopathy Respiratory exam: Present: normal lung sounds bilaterally. Absent: respiratory distress, wheezes, rales, rhonchi, stridor Cardiovascular Exam: Present: regular rate, normal rhythm, normal heart sounds. Absent: systolic murmur, diastolic murmur, rubs, gallop, clicks GI/Abdominal exam: Present: soft, normal bowel sounds. Absent: distended, tenderness, guarding, rebound, rigid Extremities exam: Present: normal inspection, full ROM, normal capillary refill. Absent: tenderness, pedal edema, joint swelling, calf tenderness Neurological exam: Present: alert, oriented X3, CN II-XII intact, reflexes normal. Absent: motor sensory deficit Skin exam: Present: warm, dry, intact, normal color. Absent: rash Course Vital Signs 04/27/23 04/27/23 04/27/23 05:45 07:15 10:48 Temperature 98.7 F 98.2 F Pulse Rate 78 80 85 Respiratory 18 18 18 Rate Blood Pressure 138/75 143/76 124/79 O2 Sat by Pulse 98 98 96 Oximetry Medical Decision Making - Medical Decision Making Was pt. sent in by a medical professional or institution (ALBER Waggoner, SENIOR QUALITY TECHNICIAN, urgent care, hospital, or residential...) When possible be specific @ -No Did you speak to anyone other than the patient for history (EMS, parent, family, police, friend...)? What history was obtained from this source @ -Son, EMS regarding past medical history Did you review nursing and triage notes (agree or disagree)? Why? @ -I reviewed and agree with nursing and triage notes Were old charts reviewed (outside hosp., previous admission, EMS record, old EKG, old radiological studies, urgent care reports/EKG's, residential records)? Report findings @ -Reviewed prior imaging Differential Diagnosis (chest pain, altered mental status, abdominal pain women, abdominal pain men, vaginal bleeding, weakness, fever, dyspnea, syncope, headache, dizziness, GI bleed, back pain, seizure, CVA, palpatations, mental he alth, musculoskeletal)? @ -Fall, intracranial hemorrhage, dizziness, syncope EKG interpreted by me (3pts min.). @ -None X-rays interpreted by me (1pt min.). @ -Chest x-ray shows some nodules noted CT interpreted by me (1pt min.). @ -CT of brain, C-spine shows evidence of intracranial masses multiple concerning for metastatic disease. U/S interpreted by me (1pt. min.). @ -None done What testing was considered but not performed or refused? (CT, X-rays, U/S, labs)? Why? @ -None What meds were considered but not given or refused? Why? @ -None Did you discuss the management of the patient with other professionals (professionals i.e. ALBER Waggoner, SENIOR QUALITY TECHNICIAN, lab, RT, psych nurse, social science teacher, fire adjuster, teacher, loans officer, bottle caser)? Give summary @ -Oncology office contacted for appointment Was smoking cessation discussed for >3mins.? @ -No Was critical care preformed (if so, how long)? @ -No Were there social determinants of health that impacted care today? How? (Homelessness, low income, unemployed, alcoholism, drug addiction, transportation, low edu. Level, literacy, decrease access to med. care, care home, rehab)? @ -No Was there de-escalation of care discussed even if they declined (Discuss DNR or withdrawal of care, Hospice)? DNR status @ -No What co-morbidities impacted this encounter? (DM, HTN, Smoking, COPD, CAD, Cancer, CVA, ARF, Chemo, Hep., AIDS, mental health diagnosis, sleep apnea, morbid obesity)? @ -Prostate cancer Was patient admitted / discharged? Hospital course, mention meds given and route, prescriptions, significant lab abnormalities, going to OR and other pertinent info. @ -[Discharge patient has evidence of intracranial masses and which is concerni ng for metastatic disease patient offered admission patient has normal laboratory studies patient and son in the room declined follow-up outpatient was contacted Undiagnosed new problem with uncertain prognosis? @ -S Drug Therapy requiring intensive monitoring for toxicity (Heparin, Nitro, Insulin, Cardizem)? @ -No Were any procedures done? @ -No Diagnosis/symptom? @ -Fall, intracranial masses Acute, or Chronic, or Acute on Chronic? @ -[Acute Uncomplicated (without systemic symptoms) or Complicated (systemic symptoms)? @ -Comp. Side effects of treatment? @ -No Exacerbation, Progression, or Severe Exacerbation? @ -No Poses a threat to life or bodily function? How? (Chest pain, [place], NM, pneumonia, PE, COPD, DKA, ARF, appy, cholecystitis, CVA, Diverticulitis, Homicidal, Suicidal, threat to staff... and all critical care pts) @ -No - Lab Data Result diagrams: 04/27/23 08:25 04/27/23 08:25 Lab Results 04/27/23 04/27/23 04/27/23 Range/Units 08:25 08:25 08:25 WBC 10.5 (3.8-10.6) k/uL RBC 4.58 (4.30-5.90) m/uL Hgb 14.1 (13.0-17.5) gm/dL Hct 41.6 (39.0-53.0) % MCV 90.8 (80.0-100.0) fL MCH 30.7 (25.0-35.0) pg MCHC 33.8 (31.0-37.0) g/dL RDW 13.4 (11.5-15.5) % Plt Count 184 (150-450) k/uL MPV 9.9 Neutrophils % 85 % Lymphocytes % 8 % Monocytes % 5 % Eosinophils % 0 % Basophils % 0 % Neutrophils # 8.9 H (1.3-7.7) k/uL Lymphocytes # 0.8 L (1.0-4.8) k/uL Monocytes # 0.5 (0-1.0) k/uL Eosinophils # 0.0 (0-0.7) k/uL Basophils # 0.0 (0-0.2) k/uL Sodium 135 L (137-145) mmol/L Potassium 3.9 (3.5-5.1) mmol/L Chloride 98 (98-107) mmol/L Carbon Dioxide 31 H (22-30) mmol/L Anion Gap 6 mmol/L BUN 25 H (9-20) mg/dL Creatinine 1.08 (0.66-1.25) mg/dL Est GFR (CKD-EPI)AfAm 72 (>60 ml/min/1.73 sqM) Est GFR (CKD-EPI)NonAf 63 (>60 ml/min/1.73 sqM) Glucose 144 H (74-99) mg/dL Calcium 9.2 (8.4-10.2) mg/dL Magnesium 2.1 (1.6-2.3) mg/dL Total Bilirubin 0.8 (0.2-1.3) mg/dL AST 25 (17-59) U/L ALT 21 (4-49) U/L Alkaline Phosphatase 110 (38-126) U/L Total Protein 6.5 (6.3-8.2) g/dL Albumin 3.8 (3.5-5.0) g/dL Urine Color Yellow Urine Appearance Cloudy (Clear) Urine pH 5.5 (5.0-8.0) Ur Specific [place] 1.025 (1.001-1.035) Urine Protein Trace H (Negative) Urine Glucose (UA) Negative (Negative) Urine Ketones Negative (Negative) Urine Blood Negative (Negative) Urine Nitrite Negative (Negative) Urine Bilirubin Negative (Negative) Urine Urobilinogen <2.0 (<2.0) mg/dL Ur Leukocyte Esterase Negative (Negative) Urine RBC 4 (0-5) /hpf Urine WBC 3 (0-5) /hpf Ur Squamous Epith Cells <1 (0-4) /hpf Calcium Oxalate Crystal Moderate H (None) /hpf Hyaline Casts 15 H (0-2) /lpf Urine Mucus Moderate H (None) /hpf Disposition Clinical Impression: Metastatic cancer, Fall, Contusion of face Disposition: HOME SELF-CARE Condition: Stable Instructions (If sedation given, give patient instructions): Fall Prevention for Older Adults (ED) Additional Instructions: Please return to the Emergency Department if symptoms worsen or any other c oncerns. Is patient prescribed a controlled substance at d/c from ED?: No Referrals: Marco Baltazar DO [Primary Care Provider] - 1-2 days Benjamín Westfall MD [STAFF PHYSICIAN] - 1-2 days Time of Disposition: 10:04
--- NOTE | 2023-04-27 07:40 | CT ---
EXAMINATION TYPE: CT brain cspine wo con CT DLP: 1504.1 mGycm, Automated exposure control for dose reduction was used. DATE OF EXAM: 04/27/2023 7:17 AM COMPARISON: CT sinus 08/13/2015 CLINICAL INDICATION:Male, 83 years old with history of pain; Fall, pain TECHNIQUE: Brain: Multiple axial CT images of the brain were obtained without IV contrast. Cspine: Axial CT images from the skull base to the inferior aspect of T2 we obtained without intraven ous contrast. Coronal and sagittal reformatted images were also reviewed. FINDINGS: Brain: Extra-axial spaces: No abnormal extra-axial fluid collections. Ventricular system: Within normal limits Cerebral parenchyma: Right frontal lobe low density 4.4 x 4.2 cm lesion with some surrounding vasogen ic edema. New from 08/13/2015. Additional area on the left occipital lobe measuring 2.5 x 2.2 cm. Thes e lesions demonstrate mass effect prominent surrounding brain parenchyma. There is vasogenic edema pr esent Stable appearance of hypodense left choroidal fissure cyst measuring 13 mm No acute intraparenc hymal hemorrhage. The lo-white junction is well differentiated. Cerebellum: Unremarkable. Mass effect: No evidence of midline shift. Intracranial vasculature: Atherosclerotic calcifications of the intracranial vessels. Soft tissues: Normal. Calvarium/osseous structures: No depressed skull fracture. Paranasal sinuses and mastoid air cells: Clear. Visualized orbits: Orbital contents are intact. Cervical spine: Fracture: None. Osseous structures: Multilevel degenerative disc disease changes with endplate spurring and disc oste ophyte complex's. Vertebral alignment: Within normal limits. Spinal canal/Neural Foramina: Disc osteophyte complexes at C5-C6 with at least mild spinal canal sten osis. No evidence for significant neural foraminal stenosis. Neck soft tissues: Prevertebral soft tissues are within normal limits. Other: The airway is patent. Emphysema changes in the lung apices. Right upper lung calcified nodule partially visualized. IMPRESSION: 1. Intra-axial lesions within the right frontal lobe and left occipital lobe, further evaluation MRI is recommended. Findings suggest metastatic disease versus other etiologies which are felt to be les s likely given patient's age, correlate with history of malignancy. 2. No intracranial hemorrhage identified. 3. No evidence of cervical spine fracture. 4. Mild multilevel degenerative disc disease.
[2023-04-27 08:53] LABS: Appearance,Urine Cloudy (Clear); Bilirubin,Urine Negative (Negative); Blood,Urine Negative (Negative); Calcium Oxalate Crystals,Urine Moderate /hpf; Color,Urine Yellow; Glucose,Urine (UA) Negative (Negative); Hyaline Casts,Urine 15 /lpf (0-2); Ketones,Urine Negative (Negative); Leukocyte Esterase,Urine Negative (Negative); Mucus,Urine Moderate /hpf; Nitrite,Urine Negative (Negative); PH, Urine 5.5 (5.0-8.0); Protein,Urine Trace (Negative); RBC,Urine 4 /hpf (0-5); Specific Gravity,Urine 1.025 (1.001-1.035); Squamous Epithelial Cell,Urine <1 /hpf (0-4); Urobilinogen,Urine <2.0 mg/dL (<2.0); WBC,Urine 3 /hpf (0-5)
--- NOTE | 2023-04-27 08:55 | XR ---
EXAMINATION TYPE: XR chest 1V DATE OF EXAM: 04/27/2023 8:49 AM COMPARISON: Chest radiographs from 05/17/2022 TECHNIQUE: XR chest 1V Frontal view of the chest. CLINICAL INDICATION:Male, 83 years old with history of pain; FINDINGS: Lungs/Pleura: Increased interstitial opacities in lung bases with increased lucency in the lung apice s. There is no evidence of pleural effusion, focal consolidation, or pneumothorax. Pulmonary vascularity: Unremarkable. Heart/mediastinum: Cardiomediastinal silhouette is unremarkable. Musculoskeletal: No acute osseous pathology. IMPRESSION: 1. Bibasilar interstitial opacities likely representing pulmonary fibrotic disease versus atelectasi s. 2. COPD changes.
[2023-04-27 08:57] LABS: Basophils % (A) 0 %; Eosinophils % (A) 0 %; HCT 41.6 % (39.0-53.0); HGB 14.1 gm/dL (13.0-17.5); Lymphocytes # (A) 0.8 k/uL (1.0-4.8); Lymphocytes % (A) 8 %; MCH 30.7 pg (25.0-35.0); MCHC 33.8 g/dL (31.0-37.0); MCV 90.8 fL (80.0-100.0); Mean Platelet Volume 9.9; Monocytes # (A) 0.5 k/uL (0-1.0); Monocytes % (A) 5 %; Neutrophils # (A) 8.9 k/uL (1.3-7.7); Neutrophils % (A) 85 %; Platelet Count 184 k/uL (150-450); RBC 4.58 m/uL (4.30-5.90); RDW 13.4 % (11.5-15.5); WBC 10.5 k/uL (3.8-10.6)
[2023-04-27 09:05] LABS: Albumin 3.8 g/dL (3.5-5.0); Calcium 9.2 mg/dL (8.4-10.2); Magnesium 2.1 mg/dL (1.6-2.3); Potassium 3.9 mmol/L (3.5-5.1); Total Bilirubin 0.8 mg/dL (0.2-1.3); Total Protein 6.5 g/dL (6.3-8.2)
[2023-04-27 10:50] VITALS: BP 124/79; PULSE 85; TEMP 98.2
== END 2023-04-27 10:48 | disposition home or self-care (01) ==
LOC: EC 05:39
DX: S00.83XA Contusion of other part of head, initial encounter (principal); C79.31 Secondary malignant neoplasm of brain; J44.9 Chronic obstructive pulmonary disease, unspecified; E11.9 Type 2 diabetes mellitus without complications; E78.5 Hyperlipidemia, unspecified; I10 Essential (primary) hypertension; E07.9 Disorder of thyroid, unspecified; Z87.891 Personal history of nicotine dependence; Z79.890 Hormone replacement therapy; Z79.02 Long term (current) use of antithrombotics/antiplatelets; Z79.01 Long term (current) use of anticoagulants; Z79.84 Long term (current) use of oral hypoglycemic drugs; Z79.899 Other long term (current) drug therapy; W18.30XA Fall on same level, unspecified, initial encounter
CPT/HCPCS: 36415; 70450; 71045; 72125; 80053; 81001; 83735; 85025; 99285

== ENCOUNTER → 2023-05-06 | Outpatient (CLI) | payer MEDICARE, OTHER ==
--- NOTE | 2023-05-06 18:52 | MR ---
EXAMINATION TYPE: MR brain wo/w con DATE OF EXAM: 05/06/2023 2:02 PM CLINICAL INDICATION:Male, 83 years old with history of G93.89 brain lesion; Hx of prostate ca COMPARISON: CT brain 05/16/2023. TECHNIQUE: Multi planar, multi sequence imaging was performed through the brain including: T1, T2, In version recovery, susceptibility weighted imaging and gradient echo imaging and Diffusion weighted im aging. The patient was then given intravenous contrast and multi planar, T1 fat-saturation images wer e obtained. IV Contrast: 10 cc Gadavist FINDINGS: Multiple intra-axial masses are identified. Examples include: The largest in the right frontal lobe m easuring 49 x 37 x 39 mm which is predominantly high T2 signal cystic lesion with surrounding vasogen ic edema. Additional right insular cortex lesion measuring 7 mm, left insular cortex/basal ganglia re gion measuring 13 mm, right occipital lobe measuring 5 mm, right temporal lobe measuring 5 mm are als o present with surrounding vasogenic edema. A larger lesion in the left occipital lobe has layering f luid fluid levels and is intrinsically high T1 bright suspicious for hemorrhage. This measures 29 x 2 8 x 31 mm with mural nodule present. There is significant vasogenic edema surrounding this lesion. No ne of these lesions demonstrate restricted diffusion. There is leftward shift of the anterior falx up to 8 mm there may be slight rightward shift of the posterior falx cerebri. Post contrast imaging the latter larger lesions have predominantly peripheral enhancement with centra l nonenhancement. The suspected hemorrhagic left occipital lobe lesion does demonstrate mural nodule with postcontrast enhancement. Additional smaller metastatic foci are seen throughout the brain some of which are homogenous in enhancement others have ring enhancement. Additional lesions which are smaller on postcontrast imaging are scattered throughout the brain there are greater than 20 additional lesions seen throughout the brain is relative sparing of the cerebell ar hemispheres and the visualized cervical spine. The bone marrow signal is within normal limits. Paranasal sinuses and mastoid air cells: No significant paranasal sinus disease. Visualized orbits: Bilateral aphakia IMPRESSION: Diffuse scattered metastatic foci throughout the cerebrum with associated vasogenic edema. There is s paring of the cerebellum. There is anterior falx cerebri 8 mm leftward midline shift. At least one of these lesions demonstrates evidence of hemorrhage with mural enhancing nodule in the left occipital lobe.
== END | disposition home or self-care (01) ==
LOC: RADMRIMAIN 12:39
PROVIDERS: ATTEND Internal Medicine Hematology & Oncology
DX: G93.6 Cerebral edema (principal); G93.89 Other specified disorders of brain; Z85.46 Personal history of malignant neoplasm of prostate
CPT/HCPCS: 70553; A9585

== ENCOUNTER → 2023-05-10 | Outpatient (CLI) | payer MEDICARE, OTHER ==
[2023-05-10 15:19] LABS: African American GFR (CKD) >90 (>60 ml/min/1.73 sqM); Blood Urea Nitrogen 19 mg/dL (9-20); Non-African American GFR(CKD) 78 (>60 ml/min/1.73 sqM)
--- NOTE | 2023-05-11 21:13 | CT ---
EXAMINATION TYPE: CT ChestAbdPelvis w con DATE OF EXAM: 05/10/2023 COMPARISON: Abdomen and pelvis 11/28/2020 HISTORY: 83-year-old male G93.89, Z85.46, prostate cancer TECHNIQUE: Contiguous axial scanning of the chest, abdomen, and pelvis performed with IV Contrast, pa tient injected with 100 cc mL of Isovue 300. Delayed images through the kidneys were obtained. Manley l/sagittal reconstructions performed. CT DLP: 2405.3 mGycm Automated exposure control for dose reduction was used. FINDINGS: CHEST: Heart upper limits of normal in size without pericardial effusion. Large caliber to the main right and left pulmonary arteries measuring up to 3.0 cm suggesting underly ing pulmonary arterial hypertension. Mild atherosclerotic arch calcifications with bovine configuration to the aortic arch. There is aneur ysm of the upper descending thoracic aorta 4.1 cm, mid descending thoracic aorta 3.4 cm and distal de scending thoracic aorta 3.0 cm. No thoracic lymphadenopathy by CT size criteria. There appears to be destructive osseous lesion with possible underlying pathologic fracture centered at the left upper sternal manubrium, possibly extending into the left first costochondral junction, c oronal image 32 and axial image 16 and 14. There is a spiculated soft tissue mass abutting the left lateral aspect of the mediastinum near the b ase of the heart measuring 5.7 cm craniocaudal by 3.7 cm AP by 3.3 cm wide. No thoracic lymphadenopathy by CT size. There is moderate underlying centrilobular emphysema, more advanced within the left upper lobe and an terior left base. No consolidation or pleural effusion. Some frothy debris noted within the mid to lo wer trachea. ABDOMEN: A few scattered tiny hepatic hypodensities remain unchanged suggesting benign cysts. Gallbladder, adrenal glands, spleen, and pancreas within normal limits. Benign bilateral renal cortical cysts measuring up to 2.3 cm on the right and 1.8 cm on the left. Fin dings unchanged from 11/28/2020. There is ongoing mild right-sided hydronephrosis but with abrupt tapering at the level of the UPJ, po ssible underlying relative UPJ obstruction. No dilated small bowel, free fluid, or free air. No mesenteric or retroperitoneal lymphadenopathy. Normal appendix. Hioy-zy-wrbmlyka stool. Sigmoid diverticulosis. No pericolonic inflammatory change. PELVIS: Bladder urine distended. Brachytherapy seeds embedded in the prostate gland. Left-sided pelvic phlebo liths. No abnormal fluid collection in the pelvis or pelvic lymphadenopathy. Bones: Moderate degenerative change at the hips. DISH in the lower thoracic spine. Advanced hypertrophic fac et arthropathy mid to lower lumbar spine. Grade 1 anterolisthesis L4-L5. Mild superior endplate defor mity L1 remains unchanged from 2020. IMPRESSION: 1. BRACHYTHERAPY SEEDS IN THE PROSTATE GLAND RELATED TO PRIOR TREATMENT. 2. APPARENT 4.3 CM DESTRUCTIVE SOFT TISSUE LESION WITHIN THE LEFT UPPER STERNAL MANUBRIUM SUSPICIOUS FOR OSSEOUS METASTASES. 3. IRREGULAR MASS WITHIN THE MEDIAL LINGULA ABUTTING THE MEDIASTINUM NEAR THE LEVEL OF THE BASE OF TH E HEART. THIS MEASURES UP TO 5.7 CM CRANIOCAUDAL. A PRIMARY LUNG NEOPLASM AND METASTATIC DISEASE ARE BOTH IN THE DIFFERENTIAL. 3. COPD WITH BACKGROUND MODERATE EMPHYSEMA. PULMONARY ARTERIAL HYPERTENSION. 4. SIGMOID DIVERTICULOSIS. 5. 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
== END | disposition home or self-care (01) ==
LOC: RADCTMAIN 13:50
PROVIDERS: ATTEND Internal Medicine Hematology & Oncology
DX: J43.2 Centrilobular emphysema (principal); G93.89 Other specified disorders of brain; I27.21 Secondary pulmonary arterial hypertension; I71.23 Aneurysm of the descending thoracic aorta, without rupture; K57.30 Diverticulosis of large intestine without perforation or abscess without bleeding; Z85.46 Personal history of malignant neoplasm of prostate
CPT/HCPCS: 82565; 84520; 71260; 74177; 36415; Q9967

== ENCOUNTER 2023-05-26 17:00 | Observation (INO) | payer MEDICARE, OTHER ==
[2023-05-26 17:48] LABS: Basophils % (A) 0 %; Eosinophils # (A) 0.1 k/uL (0-0.7); Eosinophils % (A) 0 %; HCT 43.8 % (39.0-53.0); HGB 14.7 gm/dL (13.0-17.5); Lymphocytes % (A) 7 %; MCH 30.8 pg (25.0-35.0); MCHC 33.6 g/dL (31.0-37.0); MCV 91.6 fL (80.0-100.0); Mean Platelet Volume 9.2; Monocytes # (A) 0.7 k/uL (0-1.0); Monocytes % (A) 5 %; Neutrophils # (A) 13.2 k/uL (1.3-7.7); Neutrophils % (A) 87 %; Platelet Count 163 k/uL (150-450); RBC 4.78 m/uL (4.30-5.90); WBC 15.2 k/uL (3.8-10.6)
--- NOTE | 2023-05-26 17:54 | XR ---
EXAMINATION TYPE: XR chest 2V DATE OF EXAM: 05/26/2023 COMPARISON: 04/27/2023 HISTORY: Shortness of breath TECHNIQUE: Frontal and lateral views of the chest are obtained. FINDINGS: Scattered senescent parenchymal changes noted. Hyperinflation compatible with COPD. No evidence for infiltrate. No evidence for atelectasis. Chronic pleural-parenchymal density left adryan g base. Heart size is stable. Mediastinal structures are stable and grossly unremarkable. No evidence for hilar prominence. Degenerative changes dorsal spine. IMPRESSION: 1. No evidence for acute pulmonary disease.
[2023-05-26 17:59] LABS: ALT 25 U/L (4-49); AST 21 U/L (17-59); African American GFR (CKD) >90 (>60 ml/min/1.73 sqM); Alkaline Phosphatase 93 U/L (38-126); Anion Gap 5 mmol/L; Blood Urea Nitrogen 28 mg/dL (9-20); Calcium 8.4 mg/dL (8.4-10.2); Carbon Dioxide 27 mmol/L (22-30); Chloride 103 mmol/L (98-107); Glucose 116 mg/dL (74-99); Non-African American GFR(CKD) 87 (>60 ml/min/1.73 sqM); Potassium 3.8 mmol/L (3.5-5.1); Sodium 135 mmol/L (137-145); Total Bilirubin 0.9 mg/dL (0.2-1.3); Total Protein 5.6 g/dL (6.3-8.2)
[2023-05-26] MEDS ORDERED: cefTRIAXone IN SWFI 1,000 MG/10 ML SYRINGE IVP STA (18:02)
[2023-05-26 18:05] LABS: NT-Pro-B-Type Natriuretic Pept 671 pg/mL
[2023-05-26] MEDS ORDERED: HYDROmorphone 0.5 MG/0.5 ML SYRINGE IVP PRN (18:07)
[2023-05-26] MEDS ORDERED: ACETAMINOPHEN TAB 325 MG TAB PO PRN (18:07)
[2023-05-26] MEDS ORDERED: NALOXONE 0.4 MG/ML 1 ML VIAL IV PRN (18:07)
--- NOTE | 2023-05-26 18:10 | ED ---
General Adult HPI - General Chief complaint: Wound/Laceration Stated complaint: weakness Time Seen by Provider: 05/26/23 17:01 Source: patient, RN notes reviewed, old records reviewed Mode of arrival: EMS Limitations: no limitations - History of Present Illness Initial comments: 83 yo female presents for evaluation of bilateral lower extremity erythema and skin breakdown. Patient has metastatic cancer. History is obtained from the daughter who is at bedside. His been no reported fever but there has been significant increase in generalized weakness. Patient has had a significant decline and is currently not undergoing any treatment for his cancer. There's been discussion of hospice care. - Related Data Home Medications Medication Instructions Recorded Confirmed Cholecalciferol (Vitamin D3) 2,000 unit PO DAILY 09/10/18 11/28/20 [Vitamin D3] Clopidogrel [Plavix] 75 mg PO DAILY 09/10/18 11/28/20 [place]-3 Fatty Acids/Fish Oil [Fish 1 cap PO DAILY 09/10/18 11/28/20 Oil 1,000 mg Softgel] Telmisartan [Micardis] 80 mg PO QAM 09/10/18 11/28/20 Tiotropium [place] [Spiriva] 1 cap INHALATION QAM 09/10/18 11/28/20 amLODIPine BESYLATE [Norvasc] 5 mg PO QAM 09/10/18 11/28/20 traZODone HCL 50 mg PO HS 09/10/18 11/28/20 Docusate [Colace] 100 mg PO BID 05/21/19 11/28/20 sitaGLIPtin [Januvia] 50 mg PO DAILY 05/21/19 11/28/20 Melatonin 3 mg PO HS 07/14/20 11/28/20 calcium polycarbophiL [Fibercon] 625 mg PO HS 07/14/20 11/28/20 Mirabegron [Myrbetriq] 50 mg PO DAILY 07/15/20 11/28/20 Calcium Carbonate [Calcium] 600 mg PO BID 11/28/20 11/28/20 Lactulose 20 gm PO DAILY 11/28/20 11/28/20 Levothyroxine Sodium [Synthroid] 112 mcg PO DAILY 11/28/20 11/28/20 Metoprolol Tartrate [Lopressor] 25 mg PO BID 11/28/20 Pregabalin [Lyrica] 25 mg PO BID 11/28/20 11/28/20 Allergies Allergy/AdvReac Type Severity Reaction Status Date / Time No Known Allergies Allergy Verified 05/26/23 17:04 Review of Systems ROS Statement: Those systems with pertinent positive or pertinent negative responses have been documented in the HPI. ROS Other: All systems not noted in ROS Statement are negative. Past Medical History Past Medical History: Cancer, COPD, Diabetes Mellitus, Hyperlipidemia, Hypertension, Thyroid Disorder Additional Past Medical History / Comment(s): "BENIGN TREMORS, USES A CANE., HX OF PROSTATE CANCER WITH "SEED IMPLANTS ., FREQUENT URINATION., RIGHT INGUINAL HERNIA. History of Any Multi-Drug Resistant Organisms: None Reported Past Surgical History: Hernia Repair, Orthopedic Surgery Additional Past Surgical History / Comment(s): LEFT ROTATOR CUFF ., PROSTATE SEED IMPLANTS.CATARACTS WITH IMPLANTS Past Anesthesia/Blood Transfusion Reactions: Postoperative Nausea & Vomiting (PONV) Past Psychological History: No Psychological Hx Reported Smoking Status: Former smoker Past Alcohol Use History: None Reported Past Drug Use History: None Reported - Past Family History Mother Family Medical History: Cancer Additional Family Medical History / Comment(s): BREAST CANCER General Exam Limitations: no limitations General appearance: lethargic, in distress Head exam: Present: atraumatic, normocephalic ENT exam: Present: mucous membranes dry Respiratory exam: Present: decreased breath sounds. Absent: respiratory distress, rales Cardiovascular Exam: Present: normal rhythm, tachycardia GI/Abdominal exam: Absent: distended, tenderness Extremities exam: Present: pedal edema, other (Bilateral pedal edema, there is superficial skin breakdown on both lower extremities from prior blistering. There is surrounding erythema) Neurological exam: Present: alert. Absent: motor sensory deficit Psychiatric exam: Present: normal affect, normal mood Course Vital Signs 05/26/23 05/26/23 17:01 18:18 Temperature 98.6 F Pulse Rate 110 H 116 H Respiratory 16 18 Rate Blood Pressure 130/85 130/85 O2 Sat by Pulse 93 L 94 L Oximetry Medical Decision Making - Medical Decision Making Was pt. sent in by a medical professional or institution (, PA, [employer], urgent care, hospital, or shelter...) When possible be specific @ -No Did you speak to anyone other than the patient for history (EMS, parent, family, police, friend...)? What history was obtained from this source @ Patient's daughter Did you review nursing and triage notes (agree or disagree)? Why? @ -I reviewed and agree with nursing and triage notes Were old charts reviewed (outside hosp., previous admission, EMS record, old EKG, old radiological studies, urgent care reports/EKG's, shelter records)? Report findings @ -No old charts were reviewed Differential Diagnosis (chest pain, altered mental status, abdominal pain women, abdominal pain men, vaginal bleeding, weakness, fever, dyspnea, syncope, headache, dizziness, GI bleed, back pain, seizure, CVA, palpatations, mental health, musculoskeletal)? @ -Differential Weakness: Hypoglycemia, shock, sepsis, hyponatremia, anemia, infection, MO, ETOH, adverse medicine reaction, overdose, stroke, this is not meant to be an all-inclusive list. EKG interpreted by me (3pts min.). @EKG: Sinus tachycardia wide complex with interventricular conduction delay, rate of 122, LA interval 148, QRS duration 136, QTC 388 X-rays interpreted by me (1pt min.). @ -None done CT interpreted by me (1pt min.). @ -None done U/S interpreted by me (1pt. min.). @ -None done What testing was considered but not performed or refused? (CT, X-rays, U/S, labs)? Why? @ -None What meds were considered but not given or refused? Why? @ -None Did you discuss the management of the patient with other professionals (professionals i.e. , PA, [employer], lab, RT, psych nurse, oncology social worker, anesthesiology technologist, teacher, legal officer, case briefer)? Give summary @ - sheet Was smoking cessation discussed for >3mins.? @ -No Was critical care preformed (if so, how long)? @ -No Were there social determinants of health that impacted care today? How? (Homelessness, low income, unemployed, alcoholism, drug addiction, transportation, low edu. Level, literacy, decrease access to med. care, long term, rehab)? @ -No Was there de-escalation of care discussed even if they declined (Discuss DNR or withdrawal of care, Hospice)? DNR status @ -No What co-morbidities impacted this encounter? (DM, HTN, Smoking, COPD, CAD, Cancer, CVA, ARF, Chemo, Hep., AIDS, mental health diagnosis, sleep apnea, morbid obesity)? @ -[Metastatic cancer Was patient admitted / discharged? Hospital course, mention meds given and route, prescriptions, significant lab abnormalities, going to OR and other pertinent info. @ -Patient will be admitted for evaluation treatment of bilateral lower extremity skin breakdown and cellulitis, leukocytosis, and possible evaluation for hospice care. Undiagnosed new problem with uncertain prognosis? @ -No Drug Therapy requiring intensive monitoring for toxicity (Heparin, Nitro, Insulin, Cardizem)? @ -No Were any procedures done? @ -No Diagnosis/symptom? @ Bilateral lower extremity cellulitis, generalized weakness Acute, or Chronic, or Acute on Chronic? @ Acute on chronic Uncomplicated (without systemic symptoms) or Complicated (systemic symptoms)? @ -default Side effects of treatment? @ -No Exacerbation, Progression, or Severe Exacerbation? @ -No Poses a threat to life or bodily function? How? (Chest pain, USA, MO, pneumonia, PE, COPD, DKA, ARF, appy, cholecystitis, CVA, Diverticulitis, Homicidal, Suicidal, threat to staff... and all critical care pts) @ -Poor long-term prognosis - Lab Data Result diagrams: 05/26/23 17:35 05/26/23 17:35 Lab Results 05/26/23 05/26/23 Range/Units 17:35 17:35 WBC 15.2 H (3.8-10.6) k/uL RBC 4.78 (4.30-5.90) m/uL Hgb 14.7 (13.0-17.5) gm/dL Hct 43.8 (39.0-53.0) % MCV 91.6 (80.0-100.0) fL MCH 30.8 (25.0-35.0) pg MCHC 33.6 (31.0-37.0) g/dL RDW 14.0 (11.5-15.5) % Plt Count 163 (150-450) k/uL MPV 9.2 Neutrophils % 87 % Lymphocytes % 7 % Monocytes % 5 % Eosinophils % 0 % Basophils % 0 % Neutrophils # 13.2 H (1.3-7.7) k/uL Lymphocytes # 1.0 (1.0-4.8) k/uL Monocytes # 0.7 (0-1.0) k/uL Eosinophils # 0.1 (0-0.7) k/uL Basophils # 0.0 (0-0.2) k/uL Sodium 135 L (137-145) mmol/L Potassium 3.8 (3.5-5.1) mmol/L Chloride 103 (98-107) mmol/L Carbon Dioxide 27 (22-30) mmol/L Anion Gap 5 mmol/L BUN 28 H (9-20) mg/dL Creatinine 0.71 (0.66-1.25) mg/dL Est GFR (CKD-EPI)AfAm >90 (>60 ml/min/1.73 sqM) Est GFR (CKD-EPI)NonAf 87 (>60 ml/min/1.73 sqM) Glucose 116 H (74-99) mg/dL Calcium 8.4 (8.4-10.2) mg/dL Magnesium 2.0 (1.6-2.3) mg/dL Total Bilirubin 0.9 (0.2-1.3) mg/dL AST 21 (17-59) U/L ALT 25 (4-49) U/L Alkaline Phosphatase 93 (38-126) U/L NT-Pro-B Natriuret Pep 671 pg/mL Total Protein 5.6 L (6.3-8.2) g/dL Albumin 3.0 L (3.5-5.0) g/dL Disposition Clinical Impression: Metastatic cancer, Cellulitis Disposition: ADMITTED IP TO THIS HOSP Condition: Poor Is patient prescribed a controlled substance at d/c from ED?: No Referrals: None,Stated [Primary Care Provider] - 1-2 days Time of Disposition: 18:31
[2023-05-26] MEDS: SODIUM CHLORIDE 0.9% 1,000 ML IV SCH (18:42)
[2023-05-27] MEDS: MELATONIN 3 MG TABLET PO SCH ×2 (00:44→19:44)
[2023-05-27] MEDS: traZODone HCL 50 MG TAB PO SCH ×2 (00:44→19:43)
[2023-05-27] MEDS: LEVOTHYROXINE 112 MCG TAB PO SCH (06:47)
[2023-05-27] MEDS: METOPROLOL TARTRATE 50 MG TAB PO SCH ×2 (08:48→19:43)
[2023-05-27] MEDS: LINAGLIPTIN 5 MG TABLET PO SCH (08:48)
[2023-05-27] MEDS: DOCUSATE 100 MG CAP PO SCH ×2 (08:48→19:44)
[2023-05-27] MEDS: SODIUM CHLORIDE 0.9% 1,000 ML IV SCH (08:49)
[2023-05-27] MEDS: FUROSEMIDE 20 MG TAB PO SCH (08:49)
[2023-05-27] MEDS: CLOPIDOGREL 75 MG TAB PO SCH (08:49)
[2023-05-27] MEDS: PREGABALIN 25 MG CAP PO SCH (08:49)
[2023-05-27] MEDS: amLODIPine 5 MG TAB PO SCH (08:49)
--- NOTE | 2023-05-27 11:38 | P.HPIM ---
History of Present Illness This is a pleasant 83 years old male with multiple medical problems including COPD, Diabetes Mellitus, Hyperlipidemia, Hypertension, hypothyroidism, Patient presents because bilateral leg wound infections . He [facility] up with the [facility] pt is hard of hearing and somewhat is poor historian , he can not give me details although he knows he is in the hospital , he is lying in his bed not in distress, he denies any chest pain , no dyspnea, no coughing, no change in urine or bowel habits as he explains, no headache, no dizziness, no hamiparesis , no tingling or numbness. he denies smoking or alcohol use he could not tell about his living situation or with whom he lives as per staff and ED team and bedside nurse patient was recently diagnosed with lung cancer with metastasis to the brain, and hospice care was recommended for him by his oncologist. As per my discussion with Dr. Mueller from ER yesterday he placed a consult for hospice team However the hospice team think patient has capacity to make decisions and he would not sent for hospice for now so patient keep following with him. Also patient that looks like he is getting weaker quickly over the last few days, and they has some evidence of ulcers Stage II pressure ulcers in the back of his buttocks. Also left leg distally is red and swelling Family like him to go to rehab for a few days as well Patient is tachycardic, febrile, Tim vitals stable Labs show leukocytosis of 15.2, rest of CBC, BMP, liver enzymes are unremarkable EKG showing sinus tachycardia at 122. Chest x-ray: No acute process. In the emergency room was started on ceftriaxone 1 abnormal sensation at 5 mL/h Review of Systems Review of systems CONSTITUTIONAL: No fever, no malaise, no fatigue. HEENT: No recent visual problems or hearing problems. Denied any sore throat. CARDIOVASCULAR: No orthopnea, PND, no palpitations, no syncope. PULMONARY: No shortness of breath, no cough, no hemoptysis. GASTROINTESTINAL: No diarrhea, no nausea, no vomiting, no abdominal pain. Normoactive bowel sounds. NEUROLOGICAL: No headaches, no weakness, no numbness. HEMATOLOGICAL: Denies any bleeding or petechiae. GENITOURINARY: Denies any burning micturition, frequency, or urgency. MUSCULOSKELETAL/RHEUMATOLOGICAL: Denies any joint pain, swelling, or any muscle pain. ENDOCRINE: Denies any polyuria or polydipsia. Past Medical History Past Medical History: Cancer, COPD, Diabetes Mellitus, Hyperlipidemia, Hypertension, Thyroid Disorder Additional Past Medical History / Comment(s): "BENIGN TREMORS, USES A CANE., HX OF PROSTATE CANCER WITH "SEED IMPLANTS ., FREQUENT URINATION., RIGHT INGUINAL HERNIA. NEUROPATHY History of Any Multi-Drug Resistant Organisms: None Reported Past Surgical History: Hernia Repair, Orthopedic Surgery Additional Past Surgical History / Comment(s): LEFT ROTATOR CUFF ., PROSTATE SEED IMPLANTS.CATARACTS WITH IMPLANTS Past Anesthesia/Blood Transfusion Reactions: Postoperative Nausea & Vomiting (PONV) Past Psychological History: No Psychological Hx Reported Smoking Status: Former smoker Past Alcohol Use History: None Reported Additional Past Alcohol Use History / Comment(s): STARTED SMOKING AT AGE 14 QUIT AT AGE 34. SMOKED 1 PPD, Past Drug Use History: None Reported - Past Family History Mother Family Medical History: Cancer Additional Family Medical History / Comment(s): BREAST CANCER Medications and Allergies Home Medications Medication Instructions Recorded Confirmed Type Clopidogrel [Plavix] 75 mg PO DAILY@0500 09/10/18 05/26/23 History [place]-3 Fatty Acids/Fish Oil [Fish 1 cap PO BID@0500,1600 09/10/18 05/26/23 History Oil 1,000 mg Softgel] Telmisartan [Micardis] 80 mg PO DAILY@0500 09/10/18 05/26/23 History amLODIPine BESYLATE [Norvasc] 5 mg PO DAILY@0500 09/10/18 05/26/23 History traZODone HCL 50 mg PO 09/10/18 05/26/23 History Docusate [Colace] 100 mg PO BID@0500,1600 05/21/19 05/26/23 History Melatonin 3 mg PO HS 07/14/20 05/26/23 History Mirabegron [Myrbetriq] 50 mg PO DAILY@0500 07/15/20 05/26/23 History Levothyroxine Sodium [Synthroid] 112 mcg PO AC-BRKFST@0430 11/28/20 05/26/23 History Pregabalin [Lyrica] 25 mg PO DAILY@0500 11/28/20 05/26/23 History Albuterol Nebulized [Ventolin 2.5 mg INHALATION RT-HS@159905/26/23 05/26/23 History Nebulized] Calcium Carbonate [Calcium] 600 mg PO BID@0500,1600 05/26/23 05/26/23 History Furosemide [Lasix] 40 mg PO DAILY@0500 05/26/23 05/26/23 History Metoprolol Tartrate [Lopressor] 50 mg PO BID@0500,1600 05/26/23 05/26/23 History Tiotropium 2.5 Mcg/Puff [Spiriva 1 puff INHALATION RT-DAILY PRN 05/26/23 05/26/23 History Respimat 2.5 Mcg] Vitamin D3(Unknown Dose) 1 tab PO DAILY@0500 05/26/23 05/26/23 History dexAMETHasone [Decadron] 4 mg PO DIRECTED 05/26/23 05/26/23 History sitaGLIPtin [Januvia] 50 mg PO DAILY@0500 05/26/23 05/26/23 History Allergies Allergy/AdvReac Type Severity Reaction Status Date / Time No Known Allergies Allergy Verified 05/26/23 18:53 Physical Exam Vitals: Vital Signs Temp Pulse Pulse Resp BP BP Pulse Ox 05/27/23 08:00 98.4 F 107 H 16 152/88 93 L 05/27/23 01:45 98.7 F 112 H 16 143/97 96 05/26/23 20:05 97.8 F 124 H 18 140/80 95 05/26/23 18:18 116 H 18 130/85 94 L 05/26/23 17:01 98.6 F 110 H 16 130/85 93 L Intake and Output 05/26/23 05/27/23 05/27/23 22:59 06:59 14:59 Other: # Voids 1 Weight 83.915 kg -GENERAL: The patient is alert and oriented x0-1, not in any acute distress. Well developed, well nourished. Generally weak. Hard of hearing HEENT: Pupils are round and equally reacting to light. EOMI. No scleral icterus. No conjunctival pallor. Normocephalic, atraumatic. No pharyngeal erythema. No thyromegaly. CARDIOVASCULAR: S1 and S2 present. No murmurs, rubs, or gallops. PULMONARY: Chest is clear to auscultation, no wheezing , no crackles. ABDOMEN: Soft, nontender, nondistended, normoactive bowel sounds. No palpable organomegaly. MUSCULOSKELETAL: No joint swelling or deformity. -EXTREMITIES: No cyanosis, clubbing, or pedal edema. Distal Left leg is erythematous and warm NEUROLOGICAL: Gross neurological examination did not reveal any focal deficits. SKIN: No rashes. no petechiae. Results CBC & Chem 7: 05/26/23 17:35 05/26/23 17:35 Labs: Abnormal Lab Results - Last 24 Hours (Table) 05/26/23 05/26/23 Range/Units 17:35 17:35 WBC 15.2 H (3.8-10.6) k/uL Neutrophils # 13.2 H (1.3-7.7) k/uL Sodium 135 L (137-145) mmol/L BUN 28 H (9-20) mg/dL Glucose 116 H (74-99) mg/dL Total Protein 5.6 L (6.3-8.2) g/dL Albumin 3.0 L (3.5-5.0) g/dL Thrombosis Risk Factor Assmnt - Choose All That Apply Each Factor Represents 1 point: Abnormal pulmonary function (COPD), Obesity (BMI >25), Swollen legs (current) Each Risk Factor Represents 3 Points: Age 75 years or older Thrombosis Risk Factor Assessment Total Risk Factor Score: 6 Thrombosis Risk Factor Assessment Level: High Risk Assessment and Plan Assessment: bilateral leg wound infections and cellulitis especially on the left side tachycardia could be secondary to infection and dehydration stage II pressure ulcer metabolic/toxic encephalopathy Recent history of metastatic lung cancer to the brain Diabetes mellitus Hypertension Hyperlipidemia History of osteoarthritis Hypothyroidism COPD, no exacerbation Hearing difficulty Has some memory problem possible dementia Plan: Start cefazolin continue with gentle hydration, lower rate to 40 mL per hour Hospice consult was requested from the emergency room, pending Start cefazolin Labs and medication were reviewed.. Continue same treatment. Continue with symptomatic treatment. Resume home medication. Monitor lytes and vitals. DVT and GI prophylaxis. Further recommendations depends on the clinical course of the patient DVT prophylaxis: Subcutaneous heparin GI Prophylaxis: Pepcid PT/OT: Pending Prognosis is guarded sound group will resume the care of the patient tomorrow
[2023-05-27 12:27] VITALS: BMI 26.5
[2023-05-27] MEDS: HEPARIN SODIUM,PORCINE/PF 5,000 UNIT/0.5 ML SYRINGE SQ SCH (19:44)
[2023-05-27] MEDS: FAMOTIDINE 20 MG/2 ML VIAL IV SCH (19:44)
[2023-05-27] MEDS: ALBUTEROL NEBULIZED 2.5 MG/3 ML INHALATION SCH (20:32)
[2023-05-27] MEDS ORDERED: traZODone HCL 50 MG TAB PO SCH (21:00)
[2023-05-27] MEDS ORDERED: MELATONIN 3 MG TABLET PO SCH (21:00)
[2023-05-28] MEDS: LEVOTHYROXINE 112 MCG TAB PO SCH (05:29)
[2023-05-28] MEDS: SODIUM CHLORIDE 0.9% 1,000 ML IV SCH (05:34)
[2023-05-28] MEDS: FUROSEMIDE 20 MG TAB PO SCH (09:29)
[2023-05-28] MEDS: amLODIPine 5 MG TAB PO SCH (09:29)
[2023-05-28] MEDS: FAMOTIDINE 20 MG/2 ML VIAL IV SCH ×2 (09:29→20:27)
[2023-05-28] MEDS: CLOPIDOGREL 75 MG TAB PO SCH (09:29)
[2023-05-28 09:30] LABS: Basophils # (A) 0.03 X 10*3/uL (0.00-0.10); Basophils % (A) 0.2 %; Eosinophils % (A) 1.5 %; HCT 39.3 % (39.6-50.0); HGB 12.7 d/dL (12.0-15.0); Lymphocytes # (A) 0.97 X 10*3/uL (0.90-5.00); Lymphocytes % (A) 7.2 %; MCH 30.1 pg (27.0-32.0); MCHC 32.3 d/dL (32.0-37.0); MCV 93.1 FL (80.0-97.0); Mean Platelet Volume 11.2 FL (9.5-12.2); Monocytes # (A) 0.46 X 10*3/uL (0.20-1.00); Monocytes % (A) 3.4 %; NRBC Per 100 WBC 0 X 10*3/uL (0.00-0.01); Neutrophils # (A) 11.57 X 10*3/uL (1.80-7.70); Neutrophils % (A) 85.3 %; Platelet Count 142 X 10*3/uL (140-440); RBC 4.22 X 10*6/uL (4.40-5.60); RDW 13.9 % (11.5-14.5); WBC 13.55 X 10*3/uL (4.50-10.00)
[2023-05-28] MEDS: DOCUSATE 100 MG CAP PO SCH ×2 (09:30→20:26)
[2023-05-28] MEDS: HEPARIN SODIUM,PORCINE/PF 5,000 UNIT/0.5 ML SYRINGE SQ SCH ×2 (09:31→20:26)
[2023-05-28] MEDS: PREGABALIN 25 MG CAP PO SCH (09:38)
[2023-05-28] MEDS: LINAGLIPTIN 5 MG TABLET PO SCH (09:38)
[2023-05-28] MEDS: METOPROLOL TARTRATE 50 MG TAB PO SCH ×2 (09:38→20:27)
[2023-05-28 10:16] LABS: BUN/Creat Ratio 19.33 Ratio (12.00-20.00); Blood Urea Nitrogen 17.4 mg/dL (9.0-27.0); Glucose 141 mg/dL (70-110)
[2023-05-28 10:17] LABS: Calcium 8.1 mg/dL (8.7-10.3); Carbon Dioxide 25.4 mmol/L (21.6-31.8); Chloride 103 mmol/L (96-109); Potassium 3.7 mmol/L (3.5-5.5); Sodium 137 mmol/L (135-145)
--- NOTE | 2023-05-28 10:30 | P.PN ---
Subjective Progress Note Date: 05/28/23 Patient is under complaints today, but does appear to be generally confused. He does not have appropriate logical responses to my questions. Patient has a history of metastatic cancer with brain metastasis as well as osseous metastasis as seen on recent imaging. 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 On review recent MRI, patient has brain metastases to multiple lobes with surrounding vasogenic edema. Apparently, patient has been increasingly chair and bed bound and has developed sacral ulcerations as well as lower extremity ulcers with surrounding erythema prompting his evaluation in the hospital. He was started on antibiotics by the admitting physician for bilateral lower extremity cellulitis along with leukocytosis. Hospice was re-consulted. 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 Hypertension Hyperlipidemia Diabetes type 2 COPD without exacerbation Hypothyroidism Plan: Today, patient is afebrile, 106/69, heart rate 77, 92% on room air CBC shows leukocytosis of 13.55 Basic metabolic panel is unremarkable Case discussed with oncology day, they will see the patient determine need for steroids as well as facilitate capacity discussion and goals of care planning Continue cefazolin 2 g every 8 hours Ordered wound consult Ordered oncology consult Started Dexamethasone 4 mg every 6 hours Patient is no code Objective - Vital Signs Vital signs: Vital Signs Temp 98.1 F 05/28/23 08:00 Pulse 118 H 05/28/23 08:00 Resp 17 05/28/23 08:00 BP 126/79 05/28/23 08:00 Pulse Ox 94 L 05/28/23 08:00 FiO2 Intake & Output 05/27/23 05/28/23 05/28/23 18:59 06:59 18:59 Intake Total 711 Output Total 550 Balance 711 -550 Weight 83.915 kg Intake: Oral 711 Output: Urine 550 Other: Voiding Method Urinal Urinal Diaper Diaper Incontinent Incontinent # Voids 1 2 # Bowel Movements 1 - Labs CBC & Chem 7: 05/28/23 06:25 05/26/23 17:35 Labs: Abnormal Lab Results - Last 24 Hours (Table) 05/28/23 Range/Units 06:25 WBC 13.55 H (4.50-10.00) X 10*3/uL RBC 4.22 L (4.40-5.60) X 10*6/uL Hct 39.3 L (39.6-50.0) % Neutrophils # 11.57 H (1.80-7.70) X 10*3/uL
[2023-05-28] MEDS: DEXAMETHASONE SOD PHOSPHATE 4 MG/ML 1 ML VIAL IVP SCH ×3 (11:29→23:39)
--- NOTE | 2023-05-28 13:03 | P.CONS ---
History of Present Illness - Reason for Consult Consult date: 05/28/23 metastatic malignancy, brain metastases weakness - History of Present Illness Patient is an 83-year-old white male known to our service. He is followed by Dr. Snyder in the outpatient setting. He was initially seen in 2019 because of abnormal bone marrow on imaging. There are prior history of prostate cancer. Workup further same at the time revealed no evidence of malignancy. He was then seen back in 05/19 with multiple new complaints. Over the past 2-3 weeks, the patient had been getting progressively weaker, having problems with falls and confusion with outpatient computed tomography scan showing evidence of brain metastasis. He was seen on 05/11/23, and had MRI of the brain and CT chest abdomen and pelvis ordered. Brain MRI revealed multiple metastatic lesions, involving both lobes of the cerebellum, with vasogenic edema and 8 mm midline shift. The computed tomography scan showed evidence of metastatic lesion involving the left cerebellum, as well as another masslike lesion proximal to the base of the heart, felt to represent lung metastasis or lung primary. According to office notes, the patient's performance status was felt to be quite compromised. He was also noted to have significant issues with confusion and most of the history is obtained from, and discussion done with his son. She was started on steroids and referred to radiation oncology. He was admitted this time with lower extremity swelling and cellulitis. The patient remains confused, and is unable to provide a coherent history. He states that he is aware that he has cancer in the lung and the brain, but states that he was reminded of the same by his nurse this morning. He is unable to recall meeting with Dr. Snyder, or radiation oncology. He is not aware of the type of treatment that he is on. Could not recall his prior cancer history or meeting Dr. Snyder in 2019. He was asking me for head finding his flashlight. He stated that the person living with him is his brother (it is his son) and did not recall having a [id number] as a nurse on the oncology floor. Therefore essentially all of the history was obtained from his [id number]. She stated that, in retrospect, he has been having issues with confusion off-and-on at least for some months prior to the diagnosis of brain metastases. He has had episodes of ending up in a different place than to where he was admitted to go, while driving. There have been other changes noted in memory and comprehension, but previously these were more subtle and it appears that the patient was able to compensate. There has been a major decline in his performance status and mental status over the past 2-3 weeks. The patient was seen by radiation oncology, who appropriately indicated to him and his family that he would need whole brain radiation for treatment of his brain metastasis but given his performance status and age, was of a suboptimal candidate for the same. Therefore they did not recommend that treatment. The patient was recommended hospice, but apparently refused the same when they went to see him at home. Review of Systems Constitutional: Reports anorexia, Reports fatigue, Reports weakness Eyes: denies blurred vision, denies pain Ears: bilateral: decreased hearing, deny: ear discharge, earache, tinnitus Ears, nose, mouth and throat: Denies headache, Denies sore throat Cardiovascular: Reports decreased exercise tolerance Respiratory: Denies cough Gastrointestinal: Denies abdominal pain, Denies diarrhea, Denies nausea, Denies vomiting Genitourinary: Reports as per HPI Musculoskeletal: Reports frequent falls, Reports muscle weakness Integumentary: Reports as per HPI, Reports color changes Neurological: Reports as per HPI, Reports balance difficulties, Reports confusion, Reports gait dysfunction, Reports weakness Psychiatric: Reports change in appetite, Reports confusion, Reports memory loss Endocrine: Reports fatigue Hematologic/Lymphatic: Reports as per HPI Past Medical History Past Medical History: Cancer, COPD, Diabetes Mellitus, Hyperlipidemia, Hypertension, Thyroid Disorder Additional Past Medical History / Comment(s): "BENIGN TREMORS, USES A CANE., HX OF PROSTATE CANCER WITH "SEED IMPLANTS ., FREQUENT URINATION., RIGHT INGUINAL HERNIA. NEUROPATHY History of Any Multi-Drug Resistant Organisms: None Reported Past Surgical History: Hernia Repair, Orthopedic Surgery Additional Past Surgical History / Comment(s): LEFT ROTATOR CUFF ., PROSTATE SEED IMPLANTS.CATARACTS WITH IMPLANTS Past Anesthesia/Blood Transfusion Reactions: Postoperative Nausea & Vomiting (PONV) Past Psychological History: No Psychological Hx Reported Smoking Status: Former smoker Past Alcohol Use History: None Reported Additional Past Alcohol Use History / Comment(s): STARTED SMOKING AT AGE 14 QUIT AT AGE 34. SMOKED 1 PPD, Past Drug Use History: None Reported - Past Family History Mother Family Medical History: Cancer Additional Family Medical History / Comment(s): BREAST CANCER Medications and Allergies Home Medications Medication Instructions Recorded Confirmed Type Clopidogrel [Plavix] 75 mg PO DAILY@0500 09/10/18 05/26/23 History [place]-3 Fatty Acids/Fish Oil [Fish 1 cap PO BID@0500,1600 09/10/18 05/26/23 History Oil 1,000 mg Softgel] Telmisartan [Micardis] 80 mg PO DAILY@0500 09/10/18 05/26/23 History amLODIPine BESYLATE [Norvasc] 5 mg PO DAILY@0500 09/10/18 05/26/23 History traZODone HCL 50 mg PO HS 09/10/18 05/26/23 History Docusate [Colace] 100 mg PO BID@0500,159905/21/19 05/26/23 History Melatonin 3 mg PO HS 07/14/20 05/26/23 History Mirabegron [Myrbetriq] 50 mg PO DAILY@0500 07/15/20 05/26/23 History Levothyroxine Sodium [Synthroid] 112 mcg PO AC-BRKFST@0430 11/28/20 05/26/23 History Pregabalin [Lyrica] 25 mg PO DAILY@0500 11/28/20 05/26/23 History Albuterol Nebulized [Ventolin 2.5 mg INHALATION RT-HS@159905/26/23 05/26/23 History Nebulized] Calcium Carbonate [Calcium] 600 mg PO BID@0500,159905/26/23 05/26/23 History Furosemide [Lasix] 40 mg PO DAILY@0500 05/26/23 05/26/23 History Metoprolol Tartrate [Lopressor] 50 mg PO BID@0500,1600 05/26/23 05/26/23 History Tiotropium 2.5 Mcg/Puff [Spiriva 1 puff INHALATION RT-DAILY PRN 05/26/23 05/26/23 History Respimat 2.5 Mcg] Vitamin D3(Unknown Dose) 1 tab PO DAILY@0500 05/26/23 05/26/23 History dexAMETHasone [Decadron] 4 mg PO DIRECTED 05/26/23 05/26/23 History sitaGLIPtin [Januvia] 50 mg PO DAILY@0500 05/26/23 05/26/23 History Allergies Allergy/AdvReac Type Severity Reaction Status Date / Time No Known Allergies Allergy Verified 05/26/23 18:53 Physical Exam Vitals: Vital Signs Temp Pulse Pulse Resp BP Pulse Ox 05/28/23 08:00 98.1 F 118 H 17 126/79 94 L 05/28/23 01:43 97.7 F 77 18 106/69 92 L 05/27/23 20:44 90 05/27/23 20:34 88 05/27/23 19:54 97.4 F L 106 H 18 137/77 93 L 05/27/23 14:00 97.7 F 97 16 157/86 93 L Intake and Output 05/27/23 05/28/23 05/28/23 22:59 06:59 14:59 Intake Total 237 Output Total 550 1350 Balance 237 -550 -1350 Intake: Oral 237 Output: Urine 550 1350 Other: Voiding Method Urinal Incontinent Diaper External Catheter Incontinent # Voids 2 # Bowel Movements 1 - Constitutional General appearance: no acute distress - EENT Eyes: EOMI, PERRLA ENT: hard of hearing, normal oropharynx - Neck Neck: no lymphadenopathy Thyroid: bilateral: normal size - Respiratory Respiratory: bilateral: CTA - Cardiovascular Rhythm: regular Heart sounds: normal: S1, S2 - Gastrointestinal General gastrointestinal: normal bowel sounds, soft - Integumentary Both lower extremities bandaged below knee. Tenderness on palpation over bandages - Neurologic Neurologic: CNII-XII intact - Musculoskeletal Musculoskeletal: generalized weakness, strength equal bilaterally - Psychiatric Confused, as noted in HPI Results CBC & Chem 7: 05/28/23 06:25 05/28/23 06:25 Labs: Abnormal Lab Results - Last 24 Hours (Table) 05/28/23 05/28/23 Range/Units 06:25 06:25 WBC 13.55 H (4.50-10.00) X 10*3/uL RBC 4.22 L (4.40-5.60) X 10*6/uL Hct 39.3 L (39.6-50.0) % Neutrophils # 11.57 H (1.80-7.70) X 10*3/uL Glucose 141 H (70-110) mg/dL Calcium 8.1 L (8.7-10.3) mg/dL Chest x-ray: report reviewed CT scan - abdomen: report reviewed CT scan - chest: report reviewed CT scan - pelvis: report reviewed MRI - head: report reviewed Assessment and Plan (1) Metastatic cancer Narrative/Plan: The case was discussed in detail with the admitting service, as well as the patient's [id number], who is a nurse on the floor. History was obtained from the [id number] on the patient's chart, as he was unable to provide a coherent history. - As noted the patient has a new diagnosis of metastatic malignancy, with extensive brain metastasis. Metastatic recurrence of prostate cancer, or a new lung primary with metastatic disease are both and differential. Ideally the patient would need a biopsy to confirm diagnosis. Given the extent of brain involvement, he would also need whole brain radiation. - Unfortunately his performance status is quite poor, and has shown a major decline especially over the past few weeks. He was not felt to be an appropriate candidate for brain radiation. It was therefore discussed with his family, and the admitting service, that without a reasonable option to treat his brain metastasis, his prognosis would be expected to be quite limited, regardless of the primary origin, and therefore hospice would be quite appropriate. - In my opinion the patient's memory and comprehension do not appear to be sufficient to provide appropriate decision making capacity. He was confused during my evaluation, and confusion was similarly noted during his office visit with Dr. Davis. He was unable to provide history, or participate meaningfully in management discussions. These were held with his son, who is his power of family law attorney, in the office. In this current situation, I feel that it is most appropriate for his DPOA to make the relevant management decisions regarding his medical condition. This was discussed with the admitting service, and his [id number]. - Given the anticipated, limited prognosis, comfort care is quite appropriate as noted above. If the patient and family will not be able to manage at home, then ECF with comfort care or hospice house would be reasonable options. Current Visit: Yes Status: Acute Code(s): C79.9 - SECONDARY MALIGNANT NEOPLASM OF UNSPECIFIED SITE SNOMED Code(s): 448021381 Plan: Defer to the admitting service for management of his other medical issues.
[2023-05-28] MEDS: ALBUTEROL NEBULIZED 2.5 MG/3 ML INHALATION SCH (19:39)
[2023-05-28] MEDS: MELATONIN 3 MG TABLET PO SCH (20:27)
[2023-05-28] MEDS: traZODone HCL 50 MG TAB PO SCH (20:27)
[2023-05-29] MEDS: SODIUM CHLORIDE 0.9% 1,000 ML IV SCH ×2 (04:11→20:39)
[2023-05-29] MEDS: DEXAMETHASONE SOD PHOSPHATE 4 MG/ML 1 ML VIAL IVP SCH ×4 (05:23→23:26)
[2023-05-29] MEDS: LEVOTHYROXINE 112 MCG TAB PO SCH (05:24)
[2023-05-29 08:38] LABS: Glucose,Whole Blood 168 mg/dL (70-110)
[2023-05-29] MEDS: CLOPIDOGREL 75 MG TAB PO SCH (09:06)
[2023-05-29] MEDS: amLODIPine 5 MG TAB PO SCH (09:06)
[2023-05-29] MEDS: FAMOTIDINE 20 MG/2 ML VIAL IV SCH ×2 (09:06→20:40)
[2023-05-29] MEDS: DOCUSATE 100 MG CAP PO SCH ×2 (09:06→20:40)
[2023-05-29] MEDS: METOPROLOL TARTRATE 50 MG TAB PO SCH ×2 (09:06→20:40)
[2023-05-29] MEDS: PREGABALIN 25 MG CAP PO SCH (09:06)
[2023-05-29] MEDS: LINAGLIPTIN 5 MG TABLET PO SCH (09:06)
[2023-05-29] MEDS: FUROSEMIDE 20 MG TAB PO SCH (09:06)
[2023-05-29] MEDS: HEPARIN SODIUM,PORCINE/PF 5,000 UNIT/0.5 ML SYRINGE SQ SCH ×2 (09:06→20:41)
--- NOTE | 2023-05-29 10:11 | P.PN ---
Subjective Progress Note Date: 05/29/23 Patient has no new complaints today. Ongoing care for cellulitis. Hospice re- evaluated the patient and will transition patient to hospice house versus skilled care facility for respite care with hospice at home. Dispo TBD. 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 Hypertension Hyperlipidemia Diabetes type 2 COPD without exacerbation Hypothyroidism Plan: Today, patient is afebrile, 131/80, heart rate 61, 95% on room air Appreciate oncology input Follow up with hospice Continue cefazolin 2 g every 8 hours Ordered wound consult Continue Dexamethasone 4 mg every 6 hours Patient is no code Objective - Vital Signs Vital signs: Vital Signs Temp 98.7 F 05/29/23 08:29 Pulse 61 05/29/23 08:29 Resp 18 05/29/23 08:29 BP 131/80 05/29/23 08:29 Pulse Ox 95 05/29/23 08:29 FiO2 Intake & Output 05/28/23 05/29/23 05/29/23 18:59 06:59 18:59 Intake Total 0 760 Output Total 1350 650 Balance -1350 110 Intake: Intake, IV Titration 580 Amount Sodium Chloride 0.9% 1, 480 000 ml @ 40 mls/hr IV . Q24H SYLWIA Rx#:[id number] ceFAZolin 2 gm In Sodium 100 Chloride 0.9% 50 ml @ 100 mls/hr IVPB Q8H SYLWIA Rx#: [id number] Oral 0 180 Output: Urine 1350 650 Other: Voiding Method Incontinent Incontinent Incontinent External Catheter External Catheter External Catheter # Voids 1 # Bowel Movements 1 - Labs CBC & Chem 7: 05/28/23 06:25 05/28/23 06:25 Labs: Abnormal Lab Results - Last 24 Hours (Table) 05/28/23 05/29/23 Range/Units 06:25 08:36 Glucose 141 H (70-110) mg/dL POC Glucose (mg/dL) 168 H (70-110) mg/dL Calcium 8.1 L (8.7-10.3) mg/dL
[2023-05-29 12:09] LABS: Glucose,Whole Blood 322 mg/dL (70-110)
[2023-05-29] MEDS ORDERED: DEXTROSE 50% SYRINGE 50 ML IVP PRN ×2 (12:43)
[2023-05-29] MEDS: INSULIN ASPART (NovoLOG) 100 UNIT/ML VIAL SQ SCH ×3 (12:53→20:40)
[2023-05-29 17:12] LABS: Glucose,Whole Blood 261 mg/dL (70-110)
[2023-05-29] MEDS: ALBUTEROL NEBULIZED 2.5 MG/3 ML INHALATION SCH (19:59)
[2023-05-29 20:32] LABS: Glucose,Whole Blood 231 mg/dL (70-110)
[2023-05-29] MEDS: traZODone HCL 50 MG TAB PO SCH (20:40)
[2023-05-29] MEDS: MELATONIN 3 MG TABLET PO SCH (20:40)
[2023-05-30] MEDS: DEXAMETHASONE SOD PHOSPHATE 4 MG/ML 1 ML VIAL IVP SCH ×4 (05:18→23:03)
[2023-05-30] MEDS: LEVOTHYROXINE 112 MCG TAB PO SCH (05:18)
[2023-05-30 07:21] LABS: Glucose,Whole Blood 211 mg/dL (70-110)
[2023-05-30] MEDS: amLODIPine 5 MG TAB PO SCH (08:29)
[2023-05-30] MEDS: FAMOTIDINE 20 MG/2 ML VIAL IV SCH ×2 (08:29→22:59)
[2023-05-30] MEDS: FUROSEMIDE 20 MG TAB PO SCH (08:29)
[2023-05-30] MEDS: METOPROLOL TARTRATE 50 MG TAB PO SCH ×2 (08:29→23:02)
[2023-05-30] MEDS: INSULIN ASPART (NovoLOG) 100 UNIT/ML VIAL SQ SCH ×4 (08:29→23:00)
[2023-05-30] MEDS: HEPARIN SODIUM,PORCINE/PF 5,000 UNIT/0.5 ML SYRINGE SQ SCH ×2 (08:29→22:59)
[2023-05-30] MEDS: PREGABALIN 25 MG CAP PO SCH (08:29)
[2023-05-30] MEDS: DOCUSATE 100 MG CAP PO SCH ×2 (08:29→22:59)
[2023-05-30] MEDS: CLOPIDOGREL 75 MG TAB PO SCH (08:29)
[2023-05-30] MEDS: LINAGLIPTIN 5 MG TABLET PO SCH (08:30)
--- NOTE | 2023-05-30 11:27 | P.PN ---
Subjective Progress Note Date: 05/30/23 83 years old male with PMH of COPD, Diabetes Mellitus, Hyperlipidemia, Hypertension, hypothyroidism, lung CA with metastatic disease to the brain presents to the ED for lower extremity cellulitis. He follows oncologist Dr. Davis in the outpatient setting had hospice has been recommended. In the ED patient was tachycardic with HR in the 110s, saturating 93% on RA. CBC showed WBC count of 15.2. CMP showed Na 135, BUN 28, glucose 116, albumin of 3. CXR negative. EKG showing sinus tachycardia. Patient was admitted for sepsis related to cellulitis. During his hospitalization, patient showed signs of confusion. He does not have appropriate logical responses to questioning. Apparently, hospice was unable to allow DURABLE POWER OF FIELD COUNSEL (his son) to sign the hospice paperwork since there has been no official physician capacity evaluation that enacts his medical DURABLE POWER OF FIELD COUNSEL. Hospice has been re-consulted and plans for [facility] H[facility] house vs. [facility] Hospice at home depending on cost. 05/30 Patient was seen and examined. No acute events overnight. BP 160/75 with pulse of 117. He is 91% on RA. No new blood work done today. He is pending placement. POC glucose ranging from 168-322 over the past 24H. 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 Oncology has evaluated the patient and has recommended hospice which family is ammendable with. He is currently pending placement. Continue Decadron 4mg IV Q6H for vasogenic edema. Continue Cefazolin 2g IV Q8H for treatment of cellultiis. Change insulin to medium dose sliding scale for better glycemic control. Heparin SQ for DVT prophylaxis. NO CODE. I have reviewed the following industry consultant notes: I have reviewed the results of the following tests: POC glucose as above. I have ordered the following tests: I have discussed the care of this patient with the following independent historian: I have independently interpreted the following test below: I have discussed the management of this patient with the following physician: This patient has a moderate risk of morbidity due to the following reasons: Management of hyperglycemia, likely steroid induced. Objective - Vital Signs Vital signs: Vital Signs Temp 97.9 F 05/30/23 07:15 Pulse 117 H 05/30/23 07:15 Resp 16 05/30/23 07:15 BP 160/75 05/30/23 07:15 Pulse Ox 91 L 05/30/23 07:15 FiO2 Intake & Output 05/29/23 05/30/23 05/30/23 18:59 06:59 18:59 Intake Total 240 Output Total 600 400 Balance -600 -160 Intake: Oral 240 Output: Urine 600 400 Other: Voiding Method Incontinent Incontinent External Catheter External Catheter # Bowel Movements 1 - Labs CBC & Chem 7: 05/28/23 06:25 05/28/23 06:25 Labs: Abnormal Lab Results - Last 24 Hours (Table) 05/29/23 05/29/23 05/29/23 Range/Units 12:07 17:10 20:30 POC Glucose (mg/dL) 322 H 261 H 231 H (70-110) mg/dL 05/30/23 Range/Units 07:19 POC Glucose (mg/dL) 211 H (70-110) mg/dL
[2023-05-30 11:59] LABS: Glucose,Whole Blood 227 mg/dL (70-110)
[2023-05-30] MEDS ORDERED: clonazePAM 0.5 MG TAB PO PRN (13:23)
[2023-05-30 17:34] LABS: Glucose,Whole Blood 156 mg/dL (70-110)
[2023-05-30] MEDS: ALBUTEROL NEBULIZED 2.5 MG/3 ML INHALATION SCH (20:35)
[2023-05-30 20:39] LABS: Glucose,Whole Blood 176 mg/dL (70-110)
[2023-05-30] MEDS: traZODone HCL 50 MG TAB PO SCH (23:02)
[2023-05-30] MEDS: MELATONIN 3 MG TABLET PO SCH (23:02)
[2023-05-31] MEDS: LEVOTHYROXINE 112 MCG TAB PO SCH (06:30)
[2023-05-31] MEDS: SODIUM CHLORIDE 0.9% 1,000 ML IV SCH (06:30)
[2023-05-31] MEDS: DEXAMETHASONE SOD PHOSPHATE 4 MG/ML 1 ML VIAL IVP SCH ×2 (06:30→11:31)
[2023-05-31 07:27] LABS: Glucose,Whole Blood 158 mg/dL (70-110)
[2023-05-31] MEDS: INSULIN ASPART (NovoLOG) 100 UNIT/ML VIAL SQ SCH ×2 (08:15→11:52)
[2023-05-31] MEDS: amLODIPine 5 MG TAB PO SCH (08:31)
[2023-05-31] MEDS: CLOPIDOGREL 75 MG TAB PO SCH (08:31)
[2023-05-31] MEDS: PREGABALIN 25 MG CAP PO SCH (08:31)
[2023-05-31] MEDS: FAMOTIDINE 20 MG/2 ML VIAL IV SCH (08:31)
[2023-05-31] MEDS: HEPARIN SODIUM,PORCINE/PF 5,000 UNIT/0.5 ML SYRINGE SQ SCH (08:31)
[2023-05-31] MEDS: DOCUSATE 100 MG CAP PO SCH (08:31)
[2023-05-31] MEDS: METOPROLOL TARTRATE 50 MG TAB PO SCH (08:31)
[2023-05-31] MEDS: FUROSEMIDE 20 MG TAB PO SCH (08:31)
[2023-05-31] MEDS: LINAGLIPTIN 5 MG TABLET PO SCH (08:45)
[2023-05-31 11:53] LABS: Glucose,Whole Blood 243 mg/dL (70-110)
[2023-05-31 12:25] LABS: Glucose,Whole Blood 249 mg/dL (70-110)
[2023-05-31 12:52] VITALS: BP 148/84; PULSE 86; RESP 17; TEMP 97.8
--- NOTE | 2023-05-31 15:13 | P.PN ---
Subjective Progress Note Date: 05/31/23 83 years old male with PMH of COPD, Diabetes Mellitus, Hyperlipidemia, Hypertension, hypothyroidism, lung CA with metastatic disease to the brain presents to the ED for lower extremity cellulitis. He follows oncologist Dr. Davis in the outpatient setting had hospice has been recommended. In the ED patient was tachycardic with HR in the 110s, saturating 93% on RA. CBC showed WBC count of 15.2. CMP showed Na 135, BUN 28, glucose 116, albumin of 3. CXR negative. EKG showing sinus tachycardia. Patient was admitted for sepsis related to cellulitis. During his hospitalization, patient showed signs of confusion. He does not have appropriate logical responses to questioning. Apparently, hospice was unable to allow DURABLE POWER OF PROGRAM DIRECTOR CABLE TELEVISION (his son) to sign the hospice paperwork since there has been no official physician capacity evaluation that enacts his medical DURABLE POWER OF PROGRAM DIRECTOR CABLE TELEVISION. Hospice has been re-consulted and plans for [facility] Hospice house vs. [facility] Hospice at home depending on cost. 05/30 Patient was seen and examined. No acute events overnight. BP 160/75 with pulse of 117. He is 91% on RA. No new blood work done today. He is pending placement. POC glucose ranging from 168-322 over the past 24H. 05/31 Patient was seen and examined. No acute events overnight. Plans for tra nsitions to [facility] prior to discharge home with hospice. POC glucose ranging from 156-249 over the past 24H. 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 Oncology has evaluated the patient and has recommended hospice which family is ammendable with. He is currently pending placement. Continue Decadron 4mg IV Q6H for vasogenic edema. Continue Cefazolin 2g IV Q8H for treatment of cellultiis. Change insulin to medium dose sliding scale for better glycemic control. Heparin SQ for DVT prophylaxis. NO CODE. I have reviewed the following senior professional services consultant notes: I have reviewed the results of the following tests: POC glucose as above. I have ordered the following tests: I have discussed the care of this patient with the following independent historian: I have independently interpreted the following test below: I have discussed the management of this patient with the following physician: This patient has a moderate risk of morbidity due to the following reasons: Management of hyperglycemia, likely steroid induced. Objective - Vital Signs Vital signs: Vital Signs Temp 97.8 F 05/31/23 12:11 Pulse 86 05/31/23 12:11 Resp 17 05/31/23 12:11 BP 148/84 05/31/23 12:11 Pulse Ox 93 L 05/31/23 12:11 FiO2 Intake & Output 05/30/23 05/31/23 05/31/23 18:59 06:59 18:59 Output Total 200 750 Balance -200 -750 Weight 83.915 kg Output: Urine 200 750 Other: Voiding Method Incontinent Incontinent Incontinent External Catheter External Catheter External Catheter # Bowel Movements 1 - Labs CBC & Chem 7: 05/28/23 06:25 05/28/23 06:25 Labs: Abnormal Lab Results - Last 24 Hours (Table) 05/30/23 05/30/23 05/30/23 Range/Units 10:42 17:25 20:37 POC Glucose (mg/dL) 156 H 176 H (70-110) mg/dL Hemoglobin A1c 7.1 H (<=6.0) % 05/31/23 05/31/23 05/31/23 Range/Units 07:25 11:52 12:13 POC Glucose (mg/dL) 158 H 243 H 249 H (70-110) mg/dL Hemoglobin A1c (<=6.0) %
--- NOTE | 2023-06-01 13:00 | P.DS ---
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 He follows oncologist Dr. Davis in the outpatient setting had hospice has been recommended. In the ED patient was tachycardic with HR in the 110s, saturating 93% on RA. CBC showed WBC count of 15.2. CMP showed Na 135, BUN 28, glucose 116, albumin of 3. CXR negative. EKG showing sinus tachycardia. Patient was admitted for sepsis related to cellulitis. During his hospitalization, patient showed signs of confusion. He does not have appropriate logical responses to questioning. Apparently, hospice was unable to allow DURABLE POWER OF ADDICTION COUNSELOR (his son) to sign the hospice paperwork since there has been no official physician capacity evaluation that enacts his medical DURABLE POWER OF ADDICTION COUNSELOR. Hospice has been re-consulted and plans for [facility] [place] vs. [facility] at home depending on cost. 05/30 Patient was seen and examined. No acute events overnight. BP 160/75 with pulse of 117. He is 91% on RA. No new blood work done today. He is pending placement. POC glucose ranging from 168-322 over the past 24H. 05/31 Patient was seen and examined. No acute events overnight. Plans for transitions to GIP prior to discharge home with hospice. POC glucose ranging from 156-249 over the past 24H. Patient was unable to enroll in hospice due to financial reasons. Decision was made to make the patient GIP until family could arrange for hospice at home. Pertinent studies as above. 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 Patient Condition at Discharge: Poor Plan - Discharge Summary Discharge Rx Participant: No New Discharge Prescriptions: No Action Clopidogrel [Plavix] 75 mg PO DAILY@0500 amLODIPine BESYLATE [Norvasc] 5 mg PO DAILY@0500 traZODone HCL 50 mg PO HS Telmisartan [Micardis] 80 mg PO DAILY@0500 [place]-3 Fatty Acids/Fish Oil [Fish Oil 1,000 mg Softgel] 1 cap PO BID@0500,1 600 Docusate [Colace] 100 mg PO BID@0500,1600 Melatonin 3 mg PO HS Mirabegron [Myrbetriq] 50 mg PO DAILY@0500 Levothyroxine Sodium [Synthroid] 112 mcg PO AC-BRKFST@0430 Pregabalin [Lyrica] 25 mg PO DAILY@0500 Albuterol Nebulized [Ventolin Nebulized] 2.5 mg INHALATION RT-HS@1600 Vitamin D3(Unknown Dose) 1 tab PO DAILY@0500 Calcium Carbonate [Calcium] 600 mg PO BID@0500,1600 sitaGLIPtin [Januvia] 50 mg PO DAILY@0500 Tiotropium 2.5 Mcg/Puff [Spiriva Respimat 2.5 Mcg] 1 puff INHALATION RT-DAILY PRN PRN Reason: Shortness Of Breath Furosemide [Lasix] 40 mg PO DAILY@0500 Metoprolol Tartrate [Lopressor] 50 mg PO BID@0500,1600 dexAMETHasone [Decadron] 4 mg PO PC-TID Discharge Medication List Clopidogrel [Plavix] 75 mg PO DAILY@0500 09/10/18 [History] [place]-3 Fatty Acids/Fish Oil [Fish Oil 1,000 mg Softgel] 1 cap PO BID@0500,1600 09/10/18 [History] Telmisartan [Micardis] 80 mg PO DAILY@0500 18 [History] amLODIPine BESYLATE [Norvasc] 5 mg PO DAILY@0500 09/10/18 [History] traZODone HCL 50 mg PO HS 1015/18 [History] Docusate [Colace] 100 mg PO BID@0500,1600 05/21/19 [History] Melatonin 3 mg PO HS 07/14/20 [History] Mirabegron [Myrbetriq] 50 mg PO DAILY@05007/15/20 [History] Levothyroxine Sodium [Synthroid] 112 mcg PO AC-BRKFST@04311/28/20 [History] Pregabalin [Lyrica] 25 mg PO DAILY@05011/28/20 [History] Albuterol Nebulized [Ventolin Nebulized] 2.5 mg INHALATION RT-HS@159905/26/23 [History] Calcium Carbonate [Calcium] 600 mg PO BID@0500,159905/26/23 [History] Furosemide [Lasix] 40 mg PO DAILY@49905/26/23 [History] Metoprolol Tartrate [Lopressor] 50 mg PO BID@0500,159905/26/23 [History] Tiotropium 2.5 Mcg/Puff [Spiriva Respimat 2.5 Mcg] 1 puff INHALATION RT-DAILY PRN 05/26/23 [History] Vitamin D3(Unknown Dose) 1 tab PO DAILY@49905/26/23 [History] dexAMETHasone [Decadron] 4 mg PO PC-TID 05/26/23 [History] sitaGLIPtin [Januvia] 50 mg PO DAILY@05005/26/23 [History] Follow up Appointment(s)/Referral(s): None,Stated [REFERRING] - 1-2 days Discharge Disposition: HOME WITH HOSPICE
== END 2023-05-31 16:12 | disposition hospice, home (50) ==
LOC: EC 17:00 → 5NMEDONC 18:39
PROVIDERS: ADMIT Internal Medicine; ATTEND Internal Medicine
DX: L03.115 Cellulitis of right lower limb (principal); L03.116 Cellulitis of left lower limb; C79.31 Secondary malignant neoplasm of brain; C78.00 Secondary malignant neoplasm of unspecified lung; J44.9 Chronic obstructive pulmonary disease, unspecified; A41.9 Sepsis, unspecified organism; H91.90 Unspecified hearing loss, unspecified ear; E03.9 Hypothyroidism, unspecified; R25.1 Tremor, unspecified; L89.322 Pressure ulcer of left buttock, stage 2; L89.312 Pressure ulcer of right buttock, stage 2; R00.0 Tachycardia, unspecified; E11.622 Type 2 diabetes mellitus with other skin ulcer; E78.5 Hyperlipidemia, unspecified; E11.40 Type 2 diabetes mellitus with diabetic neuropathy, unspecified; L89.159 Pressure ulcer of sacral region, unspecified stage; I10 Essential (primary) hypertension; L89.899 Pressure ulcer of other site, unspecified stage; E11.65 Type 2 diabetes mellitus with hyperglycemia; Z79.02 Long term (current) use of antithrombotics/antiplatelets; Z79.84 Long term (current) use of oral hypoglycemic drugs; Z79.899 Other long term (current) drug therapy; Z79.890 Hormone replacement therapy; Z98.42 Cataract extraction status, left eye; Z96.1 Presence of intraocular lens; Z98.41 Cataract extraction status, right eye; Z87.891 Personal history of nicotine dependence; Z80.3 Family history of malignant neoplasm of breast; Z85.46 Personal history of malignant neoplasm of prostate
CPT/HCPCS: 96376 ×4; 96365; 96366 ×4; 96372 ×5; 96375 ×3; 99285; 36415; 94640 ×4; 93005; 97162; 83880; 80053; 80048; 83735; 85025 ×2; 83036; 71046; G0378 ×6; J1100 ×4; J0690 ×5; J0696; J1644 ×5

== ENCOUNTER 2023-05-31 15:51 | Inpatient (IN) | payer MEDICAID ==
[2023-05-31] MEDS ORDERED: HYDROcodone/APAP 5-325MG 1 EACH TAB PO PRN (15:55)
[2023-05-31] MEDS ORDERED: LORazepam 0.5 MG TAB PO PRN (15:55)
[2023-05-31] MEDS ORDERED: ACETAMINOPHEN TAB 325 MG TAB PO PRN (15:55)
[2023-05-31] MEDS ORDERED: HYDROmorphone 1 MG/ML 1 ML SYRINGE IVP PRN (15:55)
[2023-05-31] MEDS ORDERED: ALBUTEROL NEBULIZED 2.5 MG/3 ML INHALATION PRN (15:58)
[2023-05-31] MEDS ORDERED: clonazePAM 0.5 MG TAB PO PRN (15:59)
[2023-05-31] MEDS ORDERED: NALOXONE 0.4 MG/ML 1 ML VIAL IVP PRN (16:02)
[2023-05-31] MEDS ORDERED: DEXTROSE 50% SYRINGE 50 ML IVP PRN ×2 (16:06)
[2023-05-31 17:08] LABS: Glucose,Whole Blood 141 mg/dL (70-110)
[2023-05-31] MEDS: SODIUM CHLORIDE 0.9% 1,000 ML IV SCH (17:25)
[2023-05-31] MEDS: INSULIN ASPART (NovoLOG) 100 UNIT/ML VIAL SQ SCH ×2 (17:25→20:58)
[2023-05-31 20:24] LABS: Glucose,Whole Blood 158 mg/dL (70-110)
[2023-05-31] MEDS: DOCUSATE 100 MG CAP PO SCH (20:58)
[2023-05-31] MEDS: MELATONIN 3 MG TABLET PO SCH (20:58)
[2023-05-31] MEDS: METOPROLOL TARTRATE 50 MG TAB PO SCH (20:58)
[2023-05-31] MEDS: traZODone HCL 50 MG TAB PO SCH (20:58)
[2023-06-01] MEDS: LEVOTHYROXINE 112 MCG TAB PO SCH (05:29)
[2023-06-01 07:49] LABS: Glucose,Whole Blood 105 mg/dL (70-110)
[2023-06-01] MEDS: INSULIN ASPART (NovoLOG) 100 UNIT/ML VIAL SQ SCH ×4 (07:54→20:27)
[2023-06-01] MEDS: amLODIPine 5 MG TAB PO SCH (08:34)
[2023-06-01] MEDS: CLOPIDOGREL 75 MG TAB PO SCH (08:34)
[2023-06-01] MEDS: DOCUSATE 100 MG CAP PO SCH ×2 (08:34→20:27)
[2023-06-01] MEDS: FUROSEMIDE 40 MG TAB PO SCH (08:34)
[2023-06-01] MEDS: PREGABALIN 25 MG CAP PO SCH (08:34)
[2023-06-01] MEDS: METOPROLOL TARTRATE 50 MG TAB PO SCH ×2 (08:34→20:27)
[2023-06-01] MEDS: LINAGLIPTIN 5 MG TABLET PO SCH (08:34)
[2023-06-01 11:56] LABS: Glucose,Whole Blood 155 mg/dL (70-110)
--- NOTE | 2023-06-01 13:06 | P.HPIM ---
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 He follows oncologist Dr. Davis in the outpatient setting had hospice has been recommended. In the ED p atient was tachycardic with HR in the 110s, saturating 93% on RA. CBC showed WBC count of 15.2. CMP showed Na 135, BUN 28, glucose 116, albumin of 3. CXR negative. EKG showing sinus tachycardia. Patient was admitted for sepsis related to cellulitis. During his hospitalization, patient showed signs of confusion. He does not have appropriate logical responses to questioning. Apparently, hospice was unable to allow DURABLE POWER OF AMUSEMENT PARK RIDE MECHANIC (his son) to sign the hospice paperwork since there has been no official physician capacity evaluation that enacts his medical DURABLE POWER OF AMUSEMENT PARK RIDE MECHANIC. Hospice has been re-consulted and plans for [facility] [place] vs. [facility] at home depending on cost. 05/30 Patient was seen and examined. No acute events overnight. BP 160/75 with pulse of 117. He is 91% on RA. No new blood work done today. He is pending placement. POC glucose ranging from 168-322 over the past 24H. 05/31 Patient was seen and examined. No acute events overnight. POC glucose ranging from 156-249 over the past 24H. Patient was unable to enroll in hospice due to financial reasons. Decision was made to make the patient GIP until family could arrange for hospice at home. 06/01 Patient was seen and examined. No acute events overnight. Patient has no complaints today. POC glucose ranging from 105-249 over the past 24H. 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 Oncology has evaluated the patient and has recommended hospice which family is ammendable with. He is currently pending placement. Discontinue Decadron. Discontinue Cefazolin. Restart home medications. Patient appears comfortable. Anticipate discharge home with hospice on Monday. Heparin SQ for DVT prophylaxis. NO CODE. I have reviewed the following strategy planning consultant notes: I have reviewed the results of the following tests: POC glucose as above. I have ordered the following tests: I have discussed the care of this patient with the following independent historian: I have independently interpreted the following test below: I have discussed the management of this patient with the following physician: This patient has a moderate risk of morbidity due to the following reasons: Management of hyperglycemia, likely steroid induced. Past Medical History Past Medical History: Cancer, COPD, Diabetes Mellitus, Hyperlipidemia, Hypertension, Thyroid Disorder Additional Past Medical History / Comment(s): "BENIGN TREMORS, USES A CANE., HX OF PROSTATE CANCER WITH "SEED IMPLANTS ., FREQUENT URINATION., RIGHT INGUINAL HERNIA. NEUROPATHY History of Any Multi-Drug Resistant Organisms: None Reported Past Surgical History: Hernia Repair, Orthopedic Surgery Additional Past Surgical History / Comment(s): LEFT ROTATOR CUFF ., PROSTATE SEED IMPLANTS.CATARACTS WITH IMPLANTS Past Anesthesia/Blood Transfusion Reactions: Postoperative Nausea & Vomiting (PONV) Past Psychological History: No Psychological Hx Reported Smoking Status: Former smoker Past Alcohol Use History: None Reported Additional Past Alcohol Use History / Comment(s): STARTED SMOKING AT AGE 14 QUIT AT AGE 34. SMOKED 1 PPD, Past Drug Use History: None Reported - Past Family History Mother Family Medical History: Cancer Additional Family Medical History / Comment(s): BREAST CANCER Medications and Allergies Home Medications Medication Instructions Recorded Confirmed Type Clopidogrel [Plavix] 75 mg PO DAILY@0500 09/10/18 05/31/23 History [place]-3 Fatty Acids/Fish Oil [Fish 1 cap PO BID@0500,1600 09/10/18 05/31/23 History Oil 1,000 mg Softgel] Telmisartan [Micardis] 80 mg PO DAILY@0500 09/10/18 05/31/23 History amLODIPine BESYLATE [Norvasc] 5 mg PO DAILY@0500 09/10/18 05/31/23 History traZODone HCL 50 mg PO HS 09/10/18 05/31/23 History Docusate [Colace] 100 mg PO BID@0500,1600 05/21/19 05/31/23 History Melatonin 3 mg PO HS 07/14/20 05/31/23 History Mirabegron [Myrbetriq] 50 mg PO DAILY@0500 07/15/20 05/31/23 History Levothyroxine Sodium [Synthroid] 112 mcg PO AC-BRKFST@0430 11/28/20 05/31/23 History Pregabalin [Lyrica] 25 mg PO DAILY@0500 11/28/20 05/31/23 History Albuterol Nebulized [Ventolin 2.5 mg INHALATION RT-HS@159905/26/23 05/31/23 History Nebulized] Calcium Carbonate [Calcium] 600 mg PO BID@0500,1600 05/26/23 05/31/23 History Furosemide [Lasix] 40 mg PO DAILY@0500 05/26/23 05/31/23 History Metoprolol Tartrate [Lopressor] 50 mg PO BID@0500,1600 05/26/23 05/31/23 History Tiotropium 2.5 Mcg/Puff [Spiriva 1 puff INHALATION RT-DAILY PRN 05/26/23 05/31/23 History Respimat 2.5 Mcg] Vitamin D3(Unknown Dose) 1 tab PO DAILY@0500 05/26/23 05/31/23 History dexAMETHasone [Decadron] 4 mg PO PC-TID 05/26/23 05/31/23 History sitaGLIPtin [Januvia] 50 mg PO DAILY@0500 05/26/23 05/31/23 History Allergies Allergy/AdvReac Type Severity Reaction Status Date / Time No Known Allergies Allergy Verified 05/31/23 21:14 Physical Exam Vitals: Vital Signs Temp Pulse Resp BP Pulse Ox 06/01/23 09:51 98.0 F 87 20 144/85 93 L 06/01/23 07:29 97.5 F L 84 18 165/85 94 L 06/01/23 01:17 97.3 F L 82 16 140/100 94 L 05/31/23 19:05 97.5 F L 84 16 150/81 95 Intake and Output 05/31/23 06/01/23 06/01/23 22:59 06:59 14:59 Intake Total 300 Output Total 800 650 350 Balance -500 -650 -350 Intake: Oral 300 Output: Urine 800 650 350 Other: Voiding Method External Catheter External Catheter # Bowel Movements 1 Weight 83.9 kg Results Labs: Abnormal Lab Results - Last 24 Hours (Table) 05/31/23 05/31/23 06/01/23 Range/Units 17:06 20:23 11:54 POC Glucose (mg/dL) 141 H 158 H 155 H (70-110) mg/dL
[2023-06-01 17:16] LABS: Glucose,Whole Blood 134 mg/dL (70-110)
[2023-06-01] MEDS: SODIUM CHLORIDE 0.9% 1,000 ML IV SCH (18:18)
[2023-06-01 19:58] LABS: Glucose,Whole Blood 188 mg/dL (70-110)
[2023-06-01] MEDS: MELATONIN 3 MG TABLET PO SCH (20:27)
[2023-06-01] MEDS: traZODone HCL 50 MG TAB PO SCH (20:27)
[2023-06-01 20:42] VITALS: TEMP 97.9
[2023-06-02] MEDS: LEVOTHYROXINE 112 MCG TAB PO SCH (05:57)
[2023-06-02 07:19] LABS: Glucose,Whole Blood 125 mg/dL (70-110)
[2023-06-02] MEDS: INSULIN ASPART (NovoLOG) 100 UNIT/ML VIAL SQ SCH (09:09)
[2023-06-02] MEDS: amLODIPine 5 MG TAB PO SCH (09:14)
[2023-06-02] MEDS: CLOPIDOGREL 75 MG TAB PO SCH (09:14)
[2023-06-02] MEDS: DOCUSATE 100 MG CAP PO SCH (09:14)
[2023-06-02] MEDS: FUROSEMIDE 40 MG TAB PO SCH (09:15)
[2023-06-02] MEDS: LINAGLIPTIN 5 MG TABLET PO SCH (09:15)
[2023-06-02] MEDS: METOPROLOL TARTRATE 50 MG TAB PO SCH (09:16)
[2023-06-02] MEDS: PREGABALIN 25 MG CAP PO SCH (09:17)
[2023-06-02 10:43] VITALS: BP 131/80; PULSE 125; RESP 20
--- NOTE | 2023-06-02 13:08 | P.DS ---
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 He follows oncologist Dr. Davis in the outpatient setting had hospice has been recommended. In the ED patient was tachycardic with HR in the 110s, saturating 93% on RA. CBC showed WBC count of 15.2. CMP showed Na 135, BUN 28, glucose 116, albumin of 3. CXR negative. EKG showing sinus tachycardia. Patient was admitted for sepsis related to cellulitis. During his hospitalization, patient showed signs of confusion. He does not have appropriate logical responses to questioning. Apparently, hospice was unable to allow DURABLE POWER OF ELECTRICAL PROSPECTING OBSERVER (his son) to sign the hospice paperwork since there has been no official physician capacity evaluation that enacts his medical DURABLE POWER OF ELECTRICAL PROSPECTING OBSERVER. Hospice has been re-consulted and plans for [facility] vs. [facility] at home depending on cost. 05/30 Patient was seen and examined. No acute events overnight. BP 160/75 with pulse of 117. He is 91% on RA. No new blood work done today. He is pending placement. POC glucose ranging from 168-322 over the past 24H. 05/31 Patient was seen and examined. No acute events overnight. POC glucose ranging from 156-249 over the past 24H. Patient was unable to enroll in hospice due to financial reasons. Decision was made to make the patient GIP until family could arrange for hospice at home. 06/01 Patient was seen and examined. No acute events overnight. Patient has no complaints today. POC glucose ranging from 105-249 over the past 24H. Patient was discharged home with hospice on 06/02. 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 Patient Condition at Discharge: Poor Plan - Discharge Summary New Discharge Prescriptions: New LORazepam [Ativan] 0.5 mg PO TID PRN tab PRN Reason: Anxiety HYDROcodone/APAP 5-325MG [[place] 5-325] 1 each PO Q4HR PRN tab PRN Reason: Moderate Pain (Scale 4 To 6) Continue Clopidogrel [Plavix] 75 mg PO DAILY@0500 amLODIPine BESYLATE [Norvasc] 5 mg PO DAILY@0500 traZODone HCL 50 mg PO HS Telmisartan [Micardis] 80 mg PO DAILY@0500 [place]-3 Fatty Acids/Fish Oil [Fish Oil 1,000 mg Softgel] 1 cap PO BID@0500,1600 Docusate [Colace] 100 mg PO BID@0500,1600 Melatonin 3 mg PO HS Mirabegron [Myrbetriq] 50 mg PO DAILY@0500 Levothyroxine Sodium [Synthroid] 112 mcg PO AC-BRKFST@0430 Pregabalin [Lyrica] 25 mg PO DAILY@0500 Albuterol Nebulized [Ventolin Nebulized] 2.5 mg INHALATION RT-HS@1600 Vitamin D3(Unknown Dose) 1 tab PO DAILY@0500 Calcium Carbonate [Calcium] 600 mg PO BID@0500,1600 sitaGLIPtin [Januvia] 50 mg PO DAILY@0500 Tiotropium 2.5 Mcg/Puff [Spiriva Respimat 2.5 Mcg] 1 puff INHALATION RT-DAILY PRN PRN Reason: Shortness Of Breath Furosemide [Lasix] 40 mg PO DAILY@0500 Metoprolol Tartrate [Lopressor] 50 mg PO BID@0500,1600 dexAMETHasone [Decadron] 4 mg PO PC-TID Discharge Medication List Clopidogrel [Plavix] 75 mg PO DAILY@0500 09/10/18 [History] [place]-3 Fatty Acids/Fish Oil [Fish Oil 1,000 mg Softgel] 1 cap PO BID@0500,1600 09/10/18 [History] Telmisartan [Micardis] 80 mg PO DAILY@0500 09/10/18 [History] amLODIPine BESYLATE [Norvasc] 5 mg PO DAILY@0500 09/10/18 [History] traZODone HCL 50 mg PO HS 09/10/18 [History] Docusate [Colace] 100 mg PO BID@0500,159905/21/19 [History] Melatonin 3 mg PO HS 07/14/20 [History] Mirabegron [Myrbetriq] 50 mg PO DAILY@05007/15/20 [History] Levothyroxine Sodium [Synthroid] 112 mcg PO AC-BRKFST@42911/28/20 [History] Pregabalin [Lyrica] 25 mg PO DAILY@05011/28/20 [History] Albuterol Nebulized [Ventolin Nebulized] 2.5 mg INHALATION RT-HS@159905/26/23 [History] Calcium Carbonate [Calcium] 600 mg PO BID@050,159905/26/23 [History] Furosemide [Lasix] 40 mg PO DAILY@49905/26/23 [History] Metoprolol Tartrate [Lopressor] 50 mg PO BID@050,159905/26/23 [History] Tiotropium 2.5 Mcg/Puff [Spiriva Respimat 2.5 Mcg] 1 puff INHALATION RT-DAILY PRN 05/26/23 [History] Vitamin D3(Unknown Dose) 1 tab PO DAILY@49905/26/23 [History] dexAMETHasone [Decadron] 4 mg PO PC-TID 05/26/23 [History] sitaGLIPtin [Januvia] 50 mg PO DAILY@49905/26/23 [History] HYDROcodone/APAP 5-325MG [[place] 5-325] 1 each PO Q4HR PRN tab 06/02/23 [Rx] LORazepam [Ativan] 0.5 mg PO TID PRN tab 06/02/23 [Rx] Discharge Disposition: HOME WITH HOSPICE
== END 2023-06-02 11:00 | disposition hospice, home (50) | DRG 951 ==
LOC: 5NMEDONC 16:12
PROVIDERS: ADMIT Family Medicine; ATTEND Family Medicine
DX: Z51.5 Encounter for palliative care (principal); A41.9 Sepsis, unspecified organism; G93.6 Cerebral edema; C79.31 Secondary malignant neoplasm of brain; L03.115 Cellulitis of right lower limb; L03.116 Cellulitis of left lower limb; C34.90 Malignant neoplasm of unspecified part of unspecified bronchus or lung; Z66 Do not resuscitate; E03.9 Hypothyroidism, unspecified; E11.65 Type 2 diabetes mellitus with hyperglycemia; T38.0X5A Adverse effect of glucocorticoids and synthetic analogues, initial encounter; E78.5 Hyperlipidemia, unspecified; I10 Essential (primary) hypertension; J44.9 Chronic obstructive pulmonary disease, unspecified; L98.429 Non-pressure chronic ulcer of back with unspecified severity; Z79.02 Long term (current) use of antithrombotics/antiplatelets; Z79.84 Long term (current) use of oral hypoglycemic drugs; Z79.890 Hormone replacement therapy; Z79.899 Other long term (current) drug therapy; Z85.46 Personal history of malignant neoplasm of prostate; Z87.891 Personal history of nicotine dependence